=== PATIENT | female | born 1960 | race Caucasian/White ===

== ENCOUNTER 2020-11-09 09:18 | Outpatient (REF) | payer OTHER, SELFPAY ==
--- NOTE | ~2020-11-09 | MM_ITS ---
EXAMINATION: MM SCREENING DIGITAL BREAST TOMOSYNTHESIS, BILATERAL CLINICAL INFORMATION: Screening. Asymptomatic. The lifetime risk of breast cancer based on the Tyrer-Cuzick Model is 5.2%. COMPARISON: Mammography: November 04, 2019 and studies dating back to March 10, 2011 TECHNIQUE: Digital breast tomosynthesis is performed in both the craniocaudal and mediolateral oblique views along with computer-aided detection (CAD). Synthesized 2D images are generated from the tomosynthesis. FINDINGS: The breasts are almost entirely fatty (ACR BI-RADS breast composition Category a). There are no significant masses, abnormal calcifications, or other abnormalities. MM/MM tomosynthesis screening BI IMPRESSION: There are no significant changes from prior study. ASSESSMENT: BI-RADS 1: Negative RECOMMENDATION: Routine annual mammography screening. This patient's information was entered into a reminder system with a target due date for their next mammogram.
== END 2020-11-09 09:19 | disposition home or self-care (01) ==
LOC: HO.MAMMO 09:18
PROVIDERS: PCP Family Medicine
DX: Z12.31 Encounter for screening mammogram for malignant neoplasm of breast (principal)
CPT/HCPCS: 77063; 77067

== ENCOUNTER 2021-11-10 15:37 | Outpatient (REF) | payer OTHER, SELFPAY ==
--- NOTE | ~2021-11-10 | MM_ITS ---
EXAMINATION: MM SCREENING DIGITAL BREAST TOMOSYNTHESIS, BILATERAL CLINICAL INFORMATION: Screening. Asymptomatic. The lifetime risk of breast cancer based on the Tyrer-Cuzick Model is 4%. COMPARISON: Mammography: 11/09/2020, 11/04/2019, 09/19/2016 TECHNIQUE: Digital breast tomosynthesis is performed in both the craniocaudal and mediolateral oblique views along with computer-aided detection (CAD). Synthesized 2D images are generated from the tomosynthesis. FINDINGS: The breasts are almost entirely fatty (ACR BI-RADS breast composition Category a). There are no significant masses, abnormal calcifications, or other abnormalities. Background stromal markings are stable. Low right axillary tail node is similar to prior exam 2019. The skin contours are smooth. No significant changes. MM/MM tomosynthesis screening BI IMPRESSION: No mammographic evidence of malignancy. ASSESSMENT: BI-RADS 1: Negative RECOMMENDATION: Routine annual mammography screening. This patient's information was entered into a reminder system with a target due date for their next mammogram.
== END 2021-11-10 15:38 | disposition home or self-care (01) ==
LOC: HO.MAMMO 15:37
PROVIDERS: PCP Family Medicine; Visit Provider Nurse Practitioner Family
DX: Z12.31 Encounter for screening mammogram for malignant neoplasm of breast (principal)
CPT/HCPCS: 77063; 77067

== ENCOUNTER 2022-11-14 15:43 | Outpatient (REF) | payer OTHER, SELFPAY ==
--- NOTE | ~2022-11-14 | MM_ITS ---
EXAMINATION: MM SCREENING DIGITAL BREAST TOMOSYNTHESIS, BILATERAL CLINICAL INFORMATION: Screening. Asymptomatic. The lifetime risk of breast cancer based on the Tyrer-Cuzick Model is 4.2%. COMPARISON: Mammography: This study is compared with prior exams dating back to 2017. TECHNIQUE: Digital breast tomosynthesis is performed in both the craniocaudal and mediolateral oblique views along with computer-aided detection (CAD). Synthesized 2D images are generated from the tomosynthesis. FINDINGS: There are scattered areas of fibroglandular density (ACR BI-RADS breast composition Category b). There are no significant masses, abnormal calcifications, or other abnormalities. MM/MM tomosynthesis screening BI IMPRESSION: No mammographic evidence of malignancy. ASSESSMENT: BI-RADS BI-RADS 1 - Negative RECOMMENDATION: Routine annual mammography screening. 1 year F/U This examination should not preclude the clinical evaluation of a suspicious palpable abnormality. This patient's information was entered into a reminder system with a target due date for their next mammogram.
== END 2022-11-14 15:44 | disposition home or self-care (01) ==
LOC: HO.MAMMO 15:43
PROVIDERS: PCP Family Medicine; Visit Provider Family Medicine
DX: Z12.31 Encounter for screening mammogram for malignant neoplasm of breast (principal)
CPT/HCPCS: 77063; 77067

== ENCOUNTER → 2022-11-14 16:00 | Outpatient (BNV) | payer OTHER, SELFPAY | PROVIDERS: PCP Family Medicine; Visit Provider Radiology Diagnostic Radiology | DX: Z12.31 Encounter for screening mammogram for malignant neoplasm of breast (principal) | CPT/HCPCS: 77063; 77067 ==

== ENCOUNTER 2023-11-22 07:52 | Outpatient (REF) | payer OTHER, SELFPAY | END 2023-11-22 07:53 | disposition home or self-care (01) | LOC: HO.MAMMO 07:52 | PROVIDERS: PCP Pediatrics; Visit Provider Pediatrics | DX: Z12.31 Encounter for screening mammogram for malignant neoplasm of breast (principal) | CPT/HCPCS: 77063; 77067 ==

== ENCOUNTER → 2023-11-22 08:00 | Outpatient (BNV) | payer OTHER, SELFPAY | PROVIDERS: PCP Pediatrics; Visit Provider Radiology Diagnostic Radiology | DX: Z12.31 Encounter for screening mammogram for malignant neoplasm of breast (principal) | CPT/HCPCS: 77063; 77067 ==

== ENCOUNTER 2024-03-03 12:21 | Outpatient (REF) | payer OTHER, SELFPAY | END 2024-03-03 12:22 | disposition home or self-care (01) | LOC: HO.HOSX 12:21 | PROVIDERS: Visit Provider Orthopaedic Surgery | DX: Z13.89 Encounter for screening for other disorder (principal) ==

== ENCOUNTER 2024-03-04 08:45 | Outpatient (AMB) | payer OTHER, SELFPAY ==
--- NOTE | 2024-03-04 08:52 | A.OFFVIS_ITS ---
Vital Signs 03/04/24 08:56 Height 5 ft 8 in Weight 249 lb BMI 37.9 Intake Visit Reasons: Left shoulder pain and weakness Intake Note: Rita is a 63 year old female who presents with complaints of progressively worsening left shoulder pain and weakness. The patient states that her left shoulder pain began several years ago. She was seen by an orthopedic surgeon in [place] last year. She was told that she has ?2 tears? in her left shoulder. She was due to undergo left shoulder surgery but she opted to undergo total knee replacement surgery 1st. The patient states that several weeks ago she reaggravated her shoulder pain when she ?passed out? while getting out of a car. Since that time she has not been able to lift her left hand above shoulder height. She has done physical therapy exercises which aggravated her pain. She has also tried Tylenol and anti-inflammatory medicines which gave her minimal relief. Allergies No Known Allergies Allergy (Verified 03/04/24 08:55) Medication List - Last Reconciled 03/04/24 by Abel Moore MD No Known Home Meds Physical Exam Vital Signs: BMI result Body Mass Index 37.9 Const Other: Well-nourished well-developed very friendly female awake alert and oriented x3 in no acute distress Extrem Other: Bilateral upper extremity examination shows good capillary refill, no skin lesions noted, normal sensation light touch Left shoulder examination shows decreased active range of motion but almost full passive range of motion when compared to her right shoulder, 3/5 strength with supraspinatus testing, positive impingement signs, no instability Results Reviewed Results Reviewed: X-rays of the patient's left shoulder show severe acromioclavicular joint narrowing, a type 3 acromion, no acute bony abnormalities Assessment & Plan Assessment & Plan (1) Left shoulder pain: Code(s): M25.512 - Pain in left shoulder Category: Medical Plan Ms. Pineda presents with progressively worsening left shoulder pain and weakness most likely due to worsening of her chronic rotator cuff tear. I will send the patient for an MRI of her left shoulder for further evaluation. I will see her back once the MRI is completed to discuss the findings and treatment options. Feel free to call me at any time should questions regarding her orthopedic management arise. I spent 22 minutes in reviewing the patient's records and imaging studies, seeing the patient and documenting in the medical record. Orders: Orders shoulder LT wo con 03/04/24 M25.512 - Pain in left shoulder Coding Level of Care Code New Pt Level 3 (14240) Complex EM visit Add On G2211 Diagnoses Left shoulder pain M25.512
[2024-03-04 08:56] VITALS: BMI 37.9
== END 2024-03-04 09:18 | disposition home or self-care (01) ==
PROVIDERS: PCP Pediatrics; Visit Provider Orthopaedic Surgery
DX: M25.512 Pain in left shoulder (principal)
CPT/HCPCS: 99203; G2211

== ENCOUNTER → 2024-03-04 08:46 | Outpatient (BNV) | payer OTHER, SELFPAY | PROVIDERS: Visit Provider Radiology Diagnostic Radiology | DX: M25.512 Pain in left shoulder (principal) | CPT/HCPCS: 73030 ==

== ENCOUNTER 2024-03-04 12:47 | Outpatient (REF) | payer OTHER, SELFPAY ==
--- NOTE | ~2024-03-04 | XR_ITS ---
EXAMINATION: XR SHOULDER, LEFT CLINICAL INFORMATION: Pain COMPARISON: None available. TECHNIQUE: AP external rotation and scapular Y, views of the left shoulder. FINDINGS: Degenerative changes in the acromioclavicular joint and greater tuberosity of the humerus. No acute cortical disruption or malalignment. No lytic or blastic lesions. No subcutaneous emphysema. Multilevel spondylosis, thoracic spine. XR/XR shoulder LT min 2V IMPRESSION: Osteoarthrosis without acute fracture or dislocation. Electronically signed by: Marcos Xavier MD 03/04/2024 09:01 AM EDT
== END 2024-03-04 12:48 | disposition home or self-care (01) ==
LOC: HO.HOSX 12:47
PROVIDERS: Visit Provider Orthopaedic Surgery
DX: M25.512 Pain in left shoulder (principal)
CPT/HCPCS: 73030; 99202

== ENCOUNTER 2024-03-06 19:20 | Outpatient (REF) | payer OTHER, SELFPAY ==
--- NOTE | ~2024-03-06 | MR_ITS ---
EXAMINATION: MR SHOULDER WITHOUT CONTRAST, LEFT CLINICAL INFORMATION: Pain in left shoulder. COMPARISON: X-rays of the left shoulder February 2024. TECHNIQUE: MRI of the shoulder without contrast was performed on a high-field scanner. FINDINGS: ROTATOR CUFF: Supraspinatus: There is a full-thickness complete insertional tear of the tendon with the associated tendon retraction back to the level of the acromioclavicular joint. This results in a tendon gap measuring 3.5 cm transverse and 3 cm AP. No significant atrophy or fatty infiltration of the muscle. Infraspinatus: There is heterogeneity and longitudinal enlargement of throughout the tendon beginning at the musculotendinous junction extending to the insertion compatible with generalized tendinosis and intrasubstance partial tearing but no measurable defect or tendon retraction. Muscle normal. Teres minor: Normal. Subscapularis: Mild heterogeneity at the insertion compatible with tendinosis and perhaps small areas of interstitial partial tearing. No measurable defect or tendon retraction. Muscle is normal. BICEPS: There is a complete proximal tear of the biceps tendon with retraction of the tendon distal to the bicipital groove. CORACOACROMIAL ARCH: The undersurface of the acromion is curved with no subacromial spur. 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 There is a joint effusion and mild synovitis. This may communicate with the joint through a capsular defect along the inferior aspect of the joint. Bursa: Increased fluid consistent with full-thickness rotator cuff tear communicating with the glenohumeral joint through the tendon defect. LABRUM/CAPSULE: Normal. GLENOHUMERAL JOINT/MARROW: There is mild cartilage heterogeneity along the superior lateral aspect of the humeral head. Glenoid cartilage normal. Overall minimal arthrosis. There is a mild joint effusion and synovitis. MR/MR shoulder LT wo con IMPRESSION: 1. Large full-thickness insertional tear of the supraspinatus tendon. 2. Tendinosis and intrasubstance partial tearing of the infraspinatus tendon. 3. Mild abnormality of the subscapularis compatible with tendinosis and perhaps small areas of interstitial partial tearing but no measurable defect. 4. Complete proximal tear of the biceps tendon. 5. 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 6. Minimal arthrosis of the glenohumeral joint. Electronically signed by: Nate Liu MD 03/07/2024 07:00 AM EDT RP
== END 2024-03-06 19:21 | disposition home or self-care (01) ==
LOC: HO.MRI 19:20
PROVIDERS: Visit Provider Orthopaedic Surgery
DX: M25.512 Pain in left shoulder (principal)
CPT/HCPCS: 73221

== ENCOUNTER 2024-03-24 08:50 | Outpatient (AMB) | payer OTHER, SELFPAY ==
--- NOTE | 2024-03-24 08:52 | A.OFFVIS_ITS ---
Intake Visit Reasons: OV- Left shoulder MRI review Intake Note: Rita is a 63 year old female who presents with complaints of progressively worsening left shoulder pain and weakness. The patient states that her left shoulder pain began several years ago. She was seen by an orthopedic surgeon in [place] last year. She was told that she has ?2 tears? in her left shoulder. She was due to undergo left shoulder surgery but she opted to undergo total knee replacement surgery 1st. The patient states that several weeks ago she reaggravated her shoulder pain when she ?passed out? while getting out of a car. Since that time she has not been able to lift her left hand above shoulder height. She has done physical therapy exercises which aggravated her pain. She has also tried Tylenol and anti-inflammatory medicines which gave her minimal relief. Allergies No Known Allergies Allergy (Verified 03/24/24 08:54) Medication List - Last Reconciled 03/26/24 by Abel Moore MD No Known Home Meds Physical Exam Const Other: Well-nourished well-developed very friendly female awake alert and oriented x3 in no acute distress Extrem Other: Left shoulder examination shows decreased range of motion when compared to her right shoulder, 3/5 strength with supraspinatus testing, positive impingement sign Results Reviewed Results Reviewed: MRI of the patient's left shoulder shows a large rotator cuff tear with retraction almost to the glenoid lip, no acute bony abnormalities Assessment & Plan Assessment & Plan (1) Left shoulder pain: Code(s): M25.512 - Pain in left shoulder Category: Medical Plan Ms. Pineda presents with progressively worsening left shoulder pain and weakness due to a large rotator cuff tear. I had a lengthy discussion with the patient regarding the treatment options. I am not sure at this point if the patient's rotator cuff tear is reparable. She may be a candidate for a repair with a surgical patch. The patient might need reverse total shoulder replacement surgery. Thus, I will have her evaluated by my partner, Dr. Hardy. She will continue with the [id number] exercises in the meantime. I spent 22 minutes in reviewing the patient's records and imaging studies, seeing the patient and documenting in the medical record. Coding Level of Care Code Est Pt Level 3 (71498) Complex EM visit Add On G2211 Diagnoses Left shoulder pain M25.512
== END 2024-03-24 09:16 | disposition home or self-care (01) ==
PROVIDERS: Visit Provider Orthopaedic Surgery
DX: M25.512 Pain in left shoulder (principal)
CPT/HCPCS: 99213; G2211

== ENCOUNTER → 2024-03-24 08:50 | Outpatient (BNVA) | payer OTHER, SELFPAY | PROVIDERS: Visit Provider Orthopaedic Surgery | DX: M75.102 Unspecified rotator cuff tear or rupture of left shoulder, not specified as traumatic (principal) | CPT/HCPCS: 99212 ==

== ENCOUNTER 2024-04-06 10:12 | Outpatient (AMB) | payer OTHER, SELFPAY ==
[2024-04-06 10:16] VITALS: BMI 37.9
--- NOTE | 2024-04-06 10:16 | MHC.OFFVIS ---
Vital Signs 04/06/24 10:16 Height 5 ft 8 in Weight 249 lb BMI 37.9 Intake Visit Reasons: OV-left shoulder pain-discuss surgery Intake Note: Rita is a 63 year old right hand dominant female who presents today for a follow up of her left shoulder. She was last seen with Dr. Moore who referred her to discuss possible Total Shoulder Replacement. Patient explains that she was previously supposed to have a shoulder replacement but opted to have her knee operated on prior to the shoulder. Allergies No Known Allergies Allergy (Verified 04/06/24 10:17) HPI HPI OV-left shoulder pain-discuss surgery: Details: Rita is a 63 year old -- hand dominant female who presents today for a follow up of her left shoulder. She was last seen with Dr. Moore who referred her to discuss possible Total Shoulder Replacement. Patient explains that she was previously supposed to have a shoulder replacement but opted to have her knee operated on prior to the shoulder. She describes difficulty with abduction that has occurred in the past and been present for a few years. Last January however she fell and feels like she re-injured her shoulder. She subsequently got an MRI which showed a full-thickness rotator cuff tear without atrophy. 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[employer] Physical Exam Vital Signs: BMI result Body Mass Index 37.9 Const General: cooperative, healthy appearing, no acute distress and well groomed Orientation/consciousness: oriented to person and oriented to place HEENT Head: Yes normal to inspection, Yes normocephalic and Yes atraumatic Eyes General: appearance normal, both eyes and all related structures Alignment and Position: alignment normal Conjunctivae: conjunctivae normal EOM: EOMs intact bilaterally Neck Neck: Yes normal visual inspection and Yes trachea midline Resp Other: No rerpiratory distress Effort & Inspection: normal respiratory effort and able to speak in complete sentences Cardio Other: Palpable radial pulse with no appreciable rythmic abnormalities GI Other: No abdominal distension Back/Spine/Pelvis Cervical Spine: normal cervical lordosis and cervical ROM normal Skin General skin exam: no rashes or lesions noted Neuro General: oriented to person, oriented to place and gait normal Extrem Other: Shoulder: Positive drop-arm and active abduction to 60 degrees with scapular recruitment. Passive external rotation to 45 degrees. Results Reviewed Results Reviewed: I personally reviewed the MR images. IMPRESSION: 1. Large full-thickness insertional tear of the supraspinatus tendon with the associated tendon retraction back to the level of the acromioclavicular joint. This results in a tendon gap measuring 3.5 cm transverse and 3 cm AP. No significant atrophy or fatty infiltration 2. Tendinosis and intrasubstance partial tearing of the infraspinatus tendon. 3. Mild abnormality of the subscapularis compatible with tendinosis and perhaps small areas of interstitial partial tearing but no measurable defect. 4. Complete proximal tear of the biceps tendon. 5. 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 6. Minimal arthrosis of the glenohumeral joint. Assessment & Plan Assessment & Plan (1) Rotator cuff tear, left: Code(s): M75.102 - Unspecified rotator cuff tear or rupture of left shoulder, not specified as traumatic Category: Medical Plan: This is an active and healthy 63-year-old woman with a left full-thickness rotator cuff tear. There is no atrophy but moderate retraction. I recommend arthroscopic rotator cuff repair. I reviewed with her the possibility that it is unrepairable and that this would result in potential need for arthroplasty in the future. At this time however I think it is worth trying to fix. I discussed the risks, benefits and alternatives including but not limited to the risk of pain, infection, stiffness, need for further surgery as well as potential medical complications such as blood clots, pulmonary embolism and cardiac complications. She expressed understanding and we will proceed forward accordingly. Coding Level of Care Code Est Pt Level 4 (22533) Diagnoses Rotator cuff tear, left M75.102
== END 2024-04-06 11:15 | disposition home or self-care (01) ==
PROVIDERS: Visit Provider Orthopaedic Surgery
DX: M75.102 Unspecified rotator cuff tear or rupture of left shoulder, not specified as traumatic (principal)
CPT/HCPCS: 99214

== ENCOUNTER → 2024-04-06 10:12 | Outpatient (BNVA) | payer OTHER, SELFPAY | PROVIDERS: Visit Provider Orthopaedic Surgery | DX: M75.102 Unspecified rotator cuff tear or rupture of left shoulder, not specified as traumatic (principal) | CPT/HCPCS: 99212 ==

== ENCOUNTER 2024-04-22 08:22 | Day surgery (SDC) | payer OTHER, SELFPAY ==
[2024-04-14 12:31] VITALS: BMI 37.9
--- NOTE | 2024-04-20 14:13 | HO.ANESPROP2 ---
Documented by User: Ligia Gandhi NP 04/20/24 14:14 HPI - Anesthesia Eval Consult details Narrative: 63yo F for Left Arthroscopic Rotator Cuff Repair Medically optimzied per [facility] preop clinic PONV PMFSH Active Problems Active Problems: All Active Problems Rotator cuff tear, left (Acute) Rotator cuff tear, right (Acute) Left shoulder pain (Acute) Right shoulder pain (Acute) Past Medical History Medical History Left shoulder pain Osteoarthritis HTN (hypertension) PONV (postoperative nausea and vomiting) Surgical History Surgical History History of Hx of tubal ligation (~1981) History of loop electrosurgical excision procedure (LEEP) (08/01/23) Hx of colonoscopy S/P right knee arthroscopy History of cholecystectomy (~1982) Hx of laparoscopic gastric banding (2006) History of left knee replacement (01/15/23) History of repair of right rotator cuff (~2021) History of Problems with Anesthesia: Yes (PONV - good effect with scop patch) Social History Social History Are you a primary critical care cns to a significant other at home: Yes (Brother-other family members assist) Do you presently have visiting nurse or other home services: No Patient Tobacco Use Status: Never used Tobacco Current occupational status: employed 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 Meds Allergies Allergy/AdvReac Type Severity Reaction Status Date / Time No Known Allergies Allergy Verified 04/22/24 08:59 Home Medications ?Medication ?Instructions ?Recorded ?Confirmed ?Last Taken ?Type metoprolol succinate 50 mg 50 mg PO BEDTIME 04/06/24 04/22/24 Unknown History tablet,extended release 24 hr calcium carbonate (Calcium 600) 600 mg PO DAILY 04/14/24 04/22/24 04/12/24 History multivitamin 1 tab PO DAILY 04/14/24 04/22/24 04/12/24 History Exam Height,Weight and Vital Signs: Height 5 ft 8 in Weight 112.945 kg Pertinent Lab Results Pertinent Lab Results: CMP 12/2023 from [facility] Assessment and Plan Assessment Anesthesia Assessment: Chart Reviewed Final Anesthetic Review History of Problems with Anesthesia: Yes (PONV - good effect with scop patch) Documented by User: Lizzie Clayton MD 04/22/24 16:05 [facility] Past Medical History Medical History Left shoulder pain Osteoarthritis HTN (hypertension) PONV (postoperative nausea and vomiting) Family History Family history of problems with anesthesia: No Surgical History Surgical History History of Hx of tubal ligation (~1981) History of loop electrosurgical excision procedure (LEEP) (08/01/23) Hx of colonoscopy S/P right knee arthroscopy History of cholecystectomy (~1982) Hx of laparoscopic gastric banding (2006) History of left knee replacement (01/15/23) History of repair of right rotator cuff (~2021) History of Problems with Anesthesia: No (PONV - good effect with scop patch) Social History Social History Are you a primary critical care cns to a significant other at home: Yes (Brother-other family members assist) Do you presently have visiting nurse or other home services: No Patient Tobacco Use Status: Never used Tobacco Current occupational status: employed 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[employer] Meds Allergies Allergy/AdvReac Type Severity Reaction Status Date / Time No Known Allergies Allergy Verified 04/22/24 08:59 Home Medications ?Medication ?Instructions ?Recorded ?Confirmed ?Last Taken ?Type metoprolol succinate 50 mg 50 mg PO BEDTIME 04/06/24 04/22/24 Unknown History tablet,extended release 24 hr calcium carbonate (Calcium 600) 600 mg PO DAILY 04/14/24 04/22/24 04/12/24 History multivitamin 1 tab PO DAILY 04/14/24 04/22/24 04/12/24 History Exam Airway Mallampati Class: II TM Dist: >3cm Neck ROM: Full Heart: rrr Lungs: cta Assessment and Plan Assessment Anesthesia Assessment: Anesthesia Plan Discussed Final Anesthetic Review Family History of Problems with Anesthesia: No History of Problems with Anesthesia: No (PONV - good effect with scop patch) NPO: Yes ASA Class: III Final Preanesthetic Review: No Changes in Pt Med Stat, Meds/Allgs Chart Reviewed, Consent Obtained/Reviewed and Anes Risks/Benef Reviewed Patient Risk: Intermediate Procedure Risk: Intermediate Anesthetic Plan Anesthetic Plan: GA Disposition: Standard PACU
[2024-04-22 09:03] VITALS: BP 138/58; PULSE 59; RESP 15; TEMP 37.1; O2SAT 97
[2024-04-22] MEDS: Scopolamine 1.5 MG PATCH.TD.3 TRANSDERMA (09:13)
[2024-04-22] MEDS: Lactated Ringers 1,000 ML 100 ML IVCONT (09:21)
--- NOTE | 2024-04-22 11:30 | MHC.SHP ---
Pre-Procedural Eval Section A - 24 Hr Update-Section A only Date of Service: 04/22/24 The patient is an INPATIENT: No Changes since office visit: No Cold of Flu in the past 2 weeks, No New Medical Problems, No Changes in Medication and No Patient answered all questions The patient has been examined within 24 hours of the surgical procedure. The History & Physical has been completed within 30 days and I have reviewed it.: Yes Section B - Complete if H&P > 30 days Chief Complaint: Unspecified rotator cuff tear or rupture of left Allergies: Allergies Allergy/AdvReac Type Severity Reaction Status Date / Time No Known Allergies Allergy Verified 04/22/24 08:59 Plan I have reviewed the history and physical and performed a pertinent physical examination on my patient. No changes have occurred unless specified. Time Spent With Patient Time: Total time managing care of this patient today ____ minutes.
--- NOTE | 2024-04-22 14:04 | P.BOP_ITS ---
Brief Operative Note Date of Service: 04/22/24 Pre-op diagnosis: Left rotator cuff tear Post-op diagnosis: same Procedure: Left RTC repair Implants: Foley and Nephew 2 medial 4.75 double loaded and 2 5.5 lateral Medium Regeneten Collagen bioinductive implant Surgeon: Arron Hardy MD Was an Senior Marketing Specialist used for this Procedure?: Yes Senior Marketing Specialist: Consuelo Manzo Estimated blood loss (mL): 25 IV fluids (mL): 1,200 Pathology: none sent Condition: stable Disposition: PACU
[2024-04-22 14:19] VITALS: BP 129/73; PULSE 98; RESP 18; TEMP 36.1; O2SAT 92
[2024-04-22 14:34] VITALS: BP 122/74; PULSE 105; RESP 17; TEMP 36.4; O2SAT 94
[2024-04-22 14:49] VITALS: BP 131/69; PULSE 97; RESP 17; O2SAT 94
--- OUTSIDE RECORDS SUMMARY | 2024-04-22 23:02 | XMS_ITS | Continuity of Care Document ---
Author Organization [facility] Address [address] [place] [address]- Care Team Providers Care Library Specialist Name Role Phone Rudolph TRAVIS, Chandni Gonsalez Primary Care Physician Encounter [facility] [place] Date(s): 04/08/24 - 04/15/24 [facility] [address] [place], [place] [address] Attending Physician: Otilio Villanueva MD Referring Physician: Arron Hardy MD Encounter Type: Office Visit Allergies, Adverse Reactions, Alerts No Known Allergies Immunizations Given and Recorded Vaccine Date Status Refusal Reason SARS-CoV-2 (COVID-19) mRNA-1273 vaccine 07/05/20 R ecorded SARS-CoV-2 (COVID-19) mRNA-1273 vaccine 06/07/20 R ecorded Influenza Virus Vaccine (oldterm) 1 03/07/20 Recor ded influenza virus vaccine, inactivated 02/01/16 Julio C rded 1Result Comment: [facility] [employer] . [place], [place] Medications calcium-vitamin D 250 mg-200 intl units oral tablet 2 gummies, By Mouth, Daily before dinner, 0 Refills, Maintenance, 06/17/23 11:22:00 AM EST, Partial fill upon patient request if the prescription is for a schedule II opioid drug. Start Date: 06/17/23 Status: Ordered Repeat number: 1 Hair, Skin And Nails Plus Biotin 2 gummies, By Mouth, Daily before dinner, 0 Refills, Maintenance, 06/17/23 11:22:00 AM EST, Partial fill upon patient request if the prescription is for a schedule II opioid drug. 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 Full thickness rotator cuff tear Confirmed 12/21/22 Active History of bariatric surgical procedure Confirmed 01/04/23 Active History of gastroesophageal reflux disease Confirmed 01/04/23 Active History of left total knee replacement Confirmed 01/28/23 Active Hypertension Confirmed Active OA (osteoarthritis) of knee Confirmed Active Postoperative nausea and vomiting Confirmed 01/04/23 Active Prediabetes Confirmed Active Rupture of tendon of biceps Confirmed 12/21/22 Active Severe obesity (BMI 35.0-39.9) with comorbidity Confirmed Active Vital Signs Most recent to oldest [Reference Range]: 1 Height 172.8 cm (04/08/24 9:17 AM) Weight 113 kg (04/08/24 9:17 AM) Oxygen Saturation [94-100 %] 100 % (04/08/24 9:17 AM) Pulse Rate [55-90 bpm] 65 bpm (04/08/24 9:17 AM) Body Mass Index [18.5-24.99 kg/m2] 37.84 kg/m2 *>HHI* (04/08/24 9:17 AM) Blood Pressure [90-138/55-84 mm Hg] 124/ 68mm Hg (04/08/24 9:17 AM) Respiratory Rate [16-30 br/min] 14 br/mi n *L* (04/08/24 9:17 AM) Mode of Delivery (Oxygen) Room air (04/08/24 9:17 AM) Blood pressure sites Arm, right (04/08/24 9:17 AM) Weight Obtained Via Standing scale (04/08/24 9:17 AM) Social History Social History Type Response Smoking Status Never (less than 100 in lifetime) entered on: 07/07/20 Sex Sex Representation Female (finding) Patient Care team information Care Team Personnel Name: Chandni Galdamez MD Position: [facility] Physician - Primary Care Member Role: PCP Address: [address] [place] [address] Family Medicine - [address] Telecom: Name: Braxton TRAVIS, Angelica Taylor Position: [facility] MINE DEVELOPMENT ENGINEER MD Member Role: [employer]etime MINE DEVELOPMENT ENGINEER Physician Address: [address] [place] [address] Women's Health Lead [employer]ricator - [place], [place] [address] Telecom: Care Team Related Persons Name: DEVORA GUO Name: LACEY GUO Insurance Providers Guarantor name: MARCELINA Health Plan Information #: 1 Payer: [facility] Direct Non Ribeiro Member Number: [id number] Policy Number: NA Group Number: [id number] Health Plan Information #: 2 Payer: [facility] DIRECT Member Number: [id number] Policy Number: NA Group Number: [id number]
--- OUTSIDE RECORDS SUMMARY | 2024-04-22 23:02 | XMS_ITS | Continuity of Care Document ---
Author Organization [facility] Address [address] [place] [address]- Care Team Providers Care Mission Coordinator Name Role Phone Rudolph TRAVIS, Chandni Gonsalez Primary Care Physician Encounter [facility] [place] Date(s): 02/28/24 - 03/29/24 [facility] [address] [place] [address]- Encounter Type: Triage Allergies, Adverse Reactions, Alerts No Known Allergies Immunizations Given and Recorded Vaccine Date Status Refusal Reason SARS-CoV-2 (COVID-19) mRNA-1273 vaccine 07/05/20 R ecorded SARS-CoV-2 (COVID-19) mRNA-1273 vaccine 06/07/20 R ecorded Influenza Virus Vaccine (oldterm) 1 03/07/20 Recor ded influenza virus vaccine, inactivated 02/01/16 Julio C [facility]ded [facility] [place] [place] Medications Biotin 2 gummies, By Mouth, Daily at bedtime, Oral, 0 Refill(s), Chew by mouth., 0 Refills, 06/17/23 12:14:00 PM EST, Partial fill upon patient request if the prescription is for a schedule II opioid drug. Start Date: 06/17/23 Status: Ordered Repeat number: 1 calcium-vitamin D 250 mg-200 intl units oral [...] Replace Required Details, Route to Pharmacy Electronically, [id number], 172.8, cm, 01/06/24 9:03:00 EDT, Height, 109.9, kg, 09/02/23 15:43:00 EDT, Dry Weight Start Date: 02/28/24 Status: Ordered Quantity: 90.0 Unit: tablet Repeat number: 1 Metoprolol Succinate ER 50 mg oral tablet, extended release 1 tablet, By Mouth, Daily, # 90 tablet, 1 Refills, Maintenance, 04/29/23 9:23:00 AM EST, [facility]/pharmacy #[id number], 174, cm, 04/29/23 8:49:00 EST, Height Start Date: 04/29/23 Status: Ordered Quantity: 90.0 Unit: tablet Repeat number: 2 Tylenol Caplet Extra Strength = 1,000 mg, By Mouth, Every 6 hours, PRN Pain , Moderate, 0 Refills, Maintenance, 07/30/23 4:06:00 PM EDT, Partial fill upon patient request if the prescription is for a schedule II opioid drug. Start Date: 07/30/23 Status: Ordered Repeat number: 1 Problem List Condition Confirmation [...] obesity (BMI 35.0-39.9) with comorbidity Confirmed Active Social History Social History Type Response Smoking Status Never (less than 100 in lifetime) entered on: 07/07/20 Sex Sex Representation Female (finding) Patient Care team information Care Team Personnel Name: Chandni Galdamez MD Position: [facility] Physician - Primary Care Member Role: PCP Address: [address] [place] [address] Family Medicine - [place], [place] [id number] Telecom: Name: Braxton TRAVIS, Angelica Taylor Position: [facility] SLEEVER MD Member Role: Lifetime SLEEVER Physician Address: [address] [place] [address] Women's Health Methods Study Analyst - [place], [place] [address] Telecom: Care Team Related Persons Name: DEVORA GUO Name: LACEY GUO Insurance Providers Guarantor name: MARCELINA Health Plan Information #: 1 Payer: [facility] Direct Non [employer] Member Number: NA Policy Number: NA Group Number: NA Health Plan Information #: 2 Payer: [facility] DIRECT Member Number: NA Policy Number: NA Group Number: NA
--- OUTSIDE RECORDS SUMMARY | 2024-04-22 23:02 | XMS_ITS | Data Portability ---
Author Organization [place] [facility] [place] [place] Address [address] [place] [address] Assessment Encounter Date Assessment Date Assessment LastModified by Organization Details LastModified Time 01/21/2023 01/21/2023 62-year-old fema le with what sounds like an acute injury to her left shoulder. She has a full-thickness retracted supraspinatus tear to the mid humeral line with some tendon degeneration. She has a partial subscapularis tear. She has a complete rupture of the long head of the biceps. She has some glenohumeral degenerative changes. The natural history of rotator cuff tears was reviewed. Treatment options discussed. We discussed that tears of the rotator cuff do not heal and may progress over time. With that being said, not all rotator cuff tears are symptomatic. We talked at length about treatment options including observation and activity modification, home exercise program/physical therapy, injection therapy, and surgical intervention with a arthroscopic versus open rotator cuff repair. We discussed the nature of the surgery as well as the anticipated recovery time. We discussed expectations regarding surgery, understanding that the primary goal is for improvement in pain and secondarily to maintain strength and range of motion. They understand that not all rotator cuff tears heal following surgery. We discussed that not all tears are repairable. We discussed that atrophic changes are generally not reversible. We discussed that some degree of weakness, stiffness, and/or pain may be present despite surgery. She is a candidate to consider a left shoulder arthroscopy, rotator cuff repair, subacromial decompression/acro mioplasty, intra-articular debridement/chondr oplasty. At this point I would recommend an attempt at repair rather than consideration of a reverse shoulder replacement. She understands this might be a possibility down the road if her tear is not repairable, does not heal, or if she develops progressive degenerative changes in the joint. I went over the nature of the arthroscopy with her as well as the anticipated recovery time. As she is just now recovering from her left knee replacement she needs to give this a few weeks and be cleared by Dr. Crocker to undergo surgery. I will put her in touch with the surgical lead so we can start thinking about things. In the interim she will work on a home range of motion program and gentle strengthening. Greater than 30 minutes was spent with the encounter today, including face to face time with the patient, documentation, review of records/imaging if applicable, and coordination of care. PRIOR BK: This is a very pleasant 62-year-old female who returns after her MRI of her left shoulder with findings consistent with massive rotator cuff tear. Along with long head biceps tear. I had discussion with the patient regarding management. Which included ongoing physical therapy plus or minus cortisone injection. The patient is aware however if we perform a cortisone injection this may further weaken the rotator cuff interval and impact on any possible surgical repair. The patient wishes to be seen by Dr. Casillas for surgical consultation. The patient is aware however that she may require reverse shoulder replacement at some point. She wishes to proceed forward with the evaluation visit. In the meantime I encouraged her to continue stretching exercise regimens including rotator cuff protective measures. She can take xzdw-frx-jnemmze pain medication for symptomatic relief. She agrees with the above-noted plan. Assessment & Plan: Date of visit 12/06/2022 This is a very pleasant 62-year-old female with sudden onset of left shoulder pain and weakness approximately 1 to 2 weeks ago after lifting a heavy box. Clinically she presents as a massive rotator cuff tear. I will send her for an MRI for further work-up. Depending upon the findings I may have her see Dr. Casillas for surgical consultation. We did review stretching exercises modalities including rotator cuff protective measures. She will follow-up shortly after her MRI. She can take wufz-tbw-hyiiiho pain medication and topical treatments for symptomatic relief. Should she have worsening symptoms or concerns she should contact my office immediately. The patient agrees with the above-noted plan. [email or web address] Not available 01/22/2023 08:36:52 01/28/2023 01/28/2023 HPI : Patient is doing well 2 weeks status post left TKA. They deny fever, chest pain and shortness of breath. They are compliant with anticoagulation protocol. She is using only Tylenol and methocarbamol for pain control. She is compliant with her aspirin for DVT prophylaxis. She is doing a lot of stretching exercises on her own and is using the force carlos. She has plans to get started on formal PT soon. Physical Exam : Patient is well nourished, well- developed, in no acute distress, with appropriate mood and affect. The patient demonstrates good knee motion and strength. The incision is clean and dry with no sign of infection. Negative calf tenderness and Jh's sign. Range of motion is from 0-100 degrees. Assessment/Plan : The patient is doing well 2 weeks from total knee arthroplasty. Continue 28 day course of anticoagulation therapy. The patient will do physical therapy and return for follow-up in 1 month for re-evaluation; sooner with any problems. Not available 01/28/2023 11:31:26 03/01/2023 03/01/2023 HPI : Patient is here for a 6 week follow-up from a left TKA. She is recovering very well. She is walking without an assistive device. Her pain is improving. She is working with physical therapy. Physical Exam : Patient is well nourished, well- developed, in no acute distress, with appropriate mood and affect. The patient is AAOx3. The patient demonstrates good knee motion and strength. The incision is well healed. Range of motion 0 to 125 degrees today. Assessment/Plan : The patient is functioning well 6 weeks from total knee arthroplasty. Continue physical therapy as needed. Return for follow-up in 2 months with x-rays at that time. Not available 03/01/2023 13:51:47 04/26/2023 04/26/2023 HPI : Patient is here for 3 month(s) follow-up for a LEFT total knee replacement.? ? she is recovering well. She has minimal to no pain. She has good function. She is walking well. She is very happy with her progress. She is still working strengthening. Overall, patient reports good pain relief in the knee and satisfactory presybeterian of function in terms of activities of daily living. Physical Exam : Patient is well nourished, well-developed, in no acute distress, with appropriate mood and affect. The patient is oriented to time, place, and person. Respirations are even and unlabored. There is no inguinal adenopathy. Examination of the contralateral knee shows normal range of motion, strength, no tenderness, and intact skin. The affected limb is well-perfused, with well healed skin incision. The patient demonstrates good knee motion, stability, and strength. The knee moves from 0-130 degrees. The alignment of the knee is neutral. Muscle strength is normal. Pedal pulses are palpable. Hip examination, including flexion and internal rotation, was negative in that groin pain was not produced. Assessment/Plan : This patient is functioning well 3 month(s) after LEFT total knee arthroplasty. Continue knee conditioning exercises. Tgjd-lkn-efwuvtj medications as needed. Ultimate failure may occur due to mechanical wear, loosening or breakage. Follow-up is recommended to assess for the possibility of failure. Plan for follow-up at 1 year from surgery with repeat x-rays of the left knee at that time. Not available 04/26/2023 09:55:44 01/30/2024 01/30/2024 HPI : Patient is here for 1 year follow-up for a left total knee replacement.? ? Patient reports good pain relief in the knee and satisfactory presybeterian of function in terms of activities of daily living. Current condition is improved relative to their pre operative condition. They have not encountered any major problems since their last office visit. She reports that it is great. She states that her left knee is pain-free and high functioning. She does report that on Saturday of this week she fell getting out of the car landing down onto the grass causing a small bruise at the anterolateral aspect of the left knee. Knee function has continued to be perfect. She is very pleased with the long-term results of her knee replacement surgery and states that she feels much better than she did before the operation. Physical Exam : Patient is well nourished, well-developed, in no acute distress, with appropriate mood and affect. The patient is oriented to time, place, and person. Respirations are even and unlabored. The affected limb is well-perfused, with well healed skin incision. The patient demonstrates good knee motion, stability, and strength. The knee moves from 0-110 degrees. Muscle strength is normal. Pedal pulses are palpable. X-Ray: 5 view x-ray study of left knee(s) obtained during today's office encounter does not show any signs of implant related issues including loosening, malposition, instability, periprosthetic fracture, periosteal reaction or infection. Assessment/Plan : This patient is functioning well after knee arthroplasty. Continue knee conditioning exercises. Ekpx-iag-ujxbhvp medications as needed. The patient understands that ultimate failure may occur due to mechanical wear, loosening or breakage. Follow-up at approximately five year post-op is recommended to assess for the possibility of failure. Follow up sooner with any problems. At least 25 minutes were spent reviewing previous charting and radiographs, obtaining history and physical exam, and reviewing treatment plan. This patient was seen and evaluated by Cindi Jane MS, PA-C in indirect conjunction with documenting/superv ising provider Federico Crocker MD. He agrees with history, physical examination, tests/diagnostic imaging, and treatment plan. Not available 01/30/2024 09:32:08 Plan of Treatment Reminders Order Date Submit Date Provider Last Modified By Organization Details Last Modified Time Details Appointments None recorded. Lab None recorded. Referral None recorded. Procedures None recorded. Surgeries shoulder arthroscopy (SURG) 2022 023 MARIA DEL CARMEN Not available 3 08:56:08 Imaging XR, knee, 3 view 2022 023 [facility], [address], [address], [place], [address], 3 11:55:21 XR, knee, 3 view 2023 024 [email or web address] [facility], [address], [address], [place], [address], 4 09:50:31 Medication Orders None recorded. Patient TargetsNo targets recorded. Patient Instructions Encounter Date Encounter Id Patient Instructions Last Modified By Organization Details Last Modified Time 01/28/2023 [id number] physical therapy * - Diagnosis: s/p L TKA Evaluate and treat as indicated to reduce pain and to improve mobility, range of motion, and function. Please teach a home exercise plan and incorporate PT into patient's exercise routine. 2-3 sessions weekly for 6 weeks. [email or web address] Not available 02/04/2023 08:25:56 04/26/2023 [id number] AP, lateral, and patellar radiographs of the left knee taken today demonstrate satisfactory position and alignment of components following left total knee replacement. Not available 04/26/2023 09:55:52 Reason for Referral None Reported. Problems Name Problem SNOMED Code Status Onset Date Resolution Date Notes Provider Name and Address Organization Details Recorded Time Arthritis of knee 545311339 Active 2022 Federico Crocker MD [address], [place], [address], [place] [facility] 3 11:51:10 Pain of left shoulder joint 4989982803627 9109 Active 2022 Tasneemryan JamesPresley null, [place] [facility] 3 15:26:18 Rupture of rotator cuff of left shoulder 1994404032485 9102 Active 2022 CINDI YOUSSEF PA-C [address], [place], [address], [place] [facility] 3 15:43:46 Rupture of tendon of biceps 412805115 Active 2022 CINDI YOUSSEF PA-C [address], [place], [address], [place] [facility] 3 06:53:56 Full thickness rotator cuff tear 506105600 Active 2022 CINDI YOUSSEF PA-C [address], [place], [address], [place] [facility] 3 06:54:15 History of left total knee replacement 9564924647340 105 Active 2022 CINDI JANE PA-C [address], [place], [address], [place] [facility] 3 11:29:51 Osteoarthri tis of left knee joint 7282747695256 09 Active 2022 CINDI YOUSSEF PA-C [address], [place], [address], [place] [facility] 3 08:34:00 Instability of joint of left knee 2423577108836 106 Active 2022 CINDI YOUSSEF PA-C [address] [facility],[address], [place], [address], [place] [facility] 3 08:34:10 Problem Notes None recorded. Procedures Surgical History Date Name Laterality Status Provider Name and Address Organization Details Recorded Time 10/10/2022 Knee Joint/Burs a Asp & Inj completed CINDI YOUSSEF PA-C [address] [facility],[address], [place], [address], [place] [facility] 10/12/2022 08:32:56 Imaging Results None recorded. Procedure Notes None recorded. Medical Equipment None Reported. Allergies No known drug allergies Medications Name Sig Start Date Stop Date Status Note LastModified by Organization Details LastModified Time amoxicillin 500 mg capsule TAKE 4 CAPSULES BY MOUTH 1 HOUR BEFORE APPOINTME NT 01/29 completed Not Available Not Available Not Available metoprolol succinate ER 50 mg tablet,exte nded release 24 hr TAKE 1 TABLET BY MOUTH EVERY DAY active Not Available Not Available No t Available diclofenac ER 100 mg tablet,exte nded release 24 hr TAKE 1 TABLET BY MOUTH TWICE A DAY 01/29 completed Not Available Not Available Not Available meloxicam 15 mg tablet TAKE 1 TABLET BY MOUTH EVERY DAY FOR 15 DAYS active Not Available Not Available No t Available aspirin 81 mg tablet,osmin yed release TAKE 1 TABLET BY MOUTH TWICE A DAY FOR 28 DAYS active Not Available Not Available No t Available ondansetron 8 mg disintegrat ing tablet TAKE 1 TABLET DISSOLVED UNDER THE TONGUE EVERY 8 HOURS NEEDED FOR NAUSEA. 03/01 completed Not Available Not Available Not Available Kenalog 40 mg/mL suspension for injection Take 1 mL by injection route. 04/26 completed Not Available Not Available Not Available lorazepam 0.5 mg tablet TAKE 1 TABLET BY MOUTH EVERYDAY AT BEDTIME 01/29 completed Not Available Not Available Not Available methocarbam ol 750 mg tablet TAKE 1 TABLET BY MOUTH EVERY 6 HOURS NEEDED 04/26 completed Not Available Not Available Not Available pantoprazol e 40 mg tablet,osmin yed release TAKE 1 TABLET BY MOUTH EVERY DAY active Not Available Not Available No t Available scopolamine 1 mg over 3 days transdermal patch PLEASE SEE ATTACHED FOR DETAILED DIRECTION S active Not Available Not Available No t Available Tylenol Extra Strength 500 mg tablet Take 2 tablets every 8 hours by oral route for 28 days. 2022 active Not Available Not Available Not Avai lable oxycodone 5 mg tablet TAKE 1-2 TABLETS BY MOUTH EVERY 4 HOURS NEEDED FOR PAIN 03/01 completed Not Available Not Available Not Available lidocaine (PF) 10 mg/mL (1 %) injection solution Take 2 mL by injection route. 04/26 completed Not Available Not Available Not Available Senexon-S 8.6 mg-50 mg tablet TAKE 1 TABLET BY MOUTH TWICE A DAY 03/01 completed Not Available Not Available Not Available Vitals Date Recorded Body height Provider Name an d Address Organization Details Last Updated DateTime 04/26/2023 177.8 cm Marimar Stanton [place] [facility] 04/26/2023 09:14:13 Date Recorded Body height Body mass index (BMI) Body weight Provider Name and Address Organization Details Last Updated DateTime 01/30/2024 177.8 cm 35.7 kg/m2 923678.5 g Coretta García [place] [facility] 01/30/2024 09:12:51 Date Recorded Body height Provider Name an d Address Organization Details Last Updated DateTime 01/21/2023 177.8 cm Yanique Jackson [place] [facility] 01/21/2023 12:52:51 Date Recorded Body height Body mass index (BMI) Body weight Provider Name and Address Organization Details Last Updated DateTime 01/28/2023 177.8 cm 38.3 kg/m2 120732.16 g Quan Marks [facility] 01/28/2023 11:20:36 Date Recorded Body height Body mass index (BMI) Body weight Provider Name and Address Organization Details Last Updated DateTime 03/01/2023 177.8 cm 38.3 kg/m2 998057.16 g Quan Marks [facility] 03/01/2023 13:30:27 Social History Question Answer Notes LastModified by Organizat ion Details LastModified Time Tobacco Smoking Status Never Smoker Yanique Jackson null, [place] [facility] 10/10/2022 15:16:33 What Is Your Level Of Alcohol Consumption? None [email or web address] Information not available 10/10/2022 Do You Use Any Illicit Or Recreational Drugs? No [email or web address] Information not available 10/10/2022 Do You Or Have You Ever Used Any Other Forms Of Tobacco Or Nicotine? No [email or web address] Information not available 10/10/2022 Sex: Unknown Functional Status None recorded. Mental Status None recorded. Family History Relationship Description Onset Age of this Age Resolved Age Notes LastModified by Organization Details LastModified Time Father Family history of malignant neoplasm [email or web address] Not available 2022 15:16:56 Father Diabetes mellitus [email or web address] Not available 2022 15:17:05 Father History of hypertension [email or web address] Not available 15:17:26 Mother Family history of malignant neoplasm [email or web address] Not available 2022 15:16:56 Mother History of hypertension [email or web address] Not available 15:17:26 Medical History Condition Response Hypertension Y Gynecological HistoryNo gynecological history recorded. Obstetrics History GPAL:G 0 P 0 0 0 0 Past Encounters Encounter ID Performer Location Encounter Start Date Encounter Closed Date Diagnosis/Indication Diagnosis SNOMED-CT Code Diagnosis ICD10 Code [id number] MD CHRISS Altamirano [address] [address] 10/10/2022 14:34:51 10/10/2022 15:56:08 Osteoarthritis of left knee joint 3796840646 61205 M17.12 Instabilit y of joint of left knee 5748712303 773134 M25.362 [id number] MD CHRISS Altamirano [address] [address] 11/30/2022 10:57:24 11/30/2022 12:04:05 Pain of left knee joint 5318906795 95257 M25.562 Osteoarthr itis of left knee joint 1899850225 53078 M17.12 Arthritis of knee 650513 002 M13.869 [id number] MD CHRISS Altamirano [address] [address] [place] [address] 12/06/2022 15:04:33 12/06/2022 15:49:35 Pain of left shoulder joint 0527216257 0152224 M25.512 Rupture of rotator cuff of left shoulder 0618086696 0901341 M75.102 [id number] MD CHRISS Bassett [place] [address] [address] [place] [address] 12/20/2022 14:59:56 12/20/2022 15:29:52 Full thickness rotator cuff tear 300752717 M75.122 Rupture of tendon of biceps 734370667 M66.829 [id number] MD CHRISS Bassett [place] [address] [address] [place] [address] 01/21/2023 12:47:22 01/21/2023 13:08:50 Full thickness rotator cuff tear 990253406 M75.122 Rupture of tendon of biceps 138193251 M66.829 [id number] MD CHRISS Altamirano [place] [address] [address] [place] [address] 01/28/2023 11:01:32 01/28/2023 11:30:49 History of left total knee replacement 2411932357 918391 Z96.652 [id number] MD CHRISS Altamirano [place] [address] [address] [place] [address] 03/01/2023 13:18:20 03/01/2023 13:53:25 History of left total knee replacement 4177944949 535608 Z96.652 Aftercare 949971525 Z47. 1 [id number] MD CHRISS Altamirano [place] [address] [address] [place] [address] 04/26/2023 08:55:11 04/26/2023 10:00:56 History of left total knee replacement 0647727885 287717 Z96.652 Aftercare 828301869 Z47. 1 [id number] MD [facility] [address] [place] [address] 01/30/2024 09:00:44 01/30/2024 09:36:01 History of left total knee replacement 6002672525 826359 Z96.652 Health Concerns Section Related Observation LastModified by Organization Detai ls LastModified Time None Recorded Concern Status LastModified by Organization Details LastModified Time None Recorded Advance Directives Directive None Recorded Payers Encounter Date Sequence Insurance Name Policy Number Policy Rosario Covered Member ID Rosario Member ID Guarantor Name 01/21/2023 1 [employer] - CHOICE (POS II) [id number] Rita Pinead [id number] Rita Pineda 01/28/2023 1 [employer] - CHOICE (POS II) [id number] Rita Pineda [id number] Rita Pineda 03/01/2023 1 [employer] - CHOICE (POS II) [id number] Rita Pineda [id number] Rita Pineda 04/26/2023 1 [employer] - CHOICE (POS II) [id number] Rita Pineda [id number] Rita Pineda 01/30/2024 1 [employer] - [facility] TYPE I (O) [id number] Rita Pineda [id number] Rita Pineda Notes Date Note Type Note Provider Name and Address Organization Details Recorded Time 01/21/2023 text/html Patient returns to the office for an evaluation of her left shoulder. She is right-hand dominant. This started back in November when she was picking up a case of soda and heard a ripping sensation in her shoulder. She has had pain and some difficulty raising the arm since then. She ended up having an MRI after she saw Cindi in our office. She has been working on a home exercise program. She rates her pain as a 3 to a 5 on a 10 point scale. She has some discomfort sleeping on the shoulder at night. She is not sure if she has had any prior injuries or problems with the shoulder, she has a history of a contralateral shoulder rotator cuff surgery. She is recently postop from a total knee replacement with Dr. Crocker. History of high blood pressure and arthritis . Non-smoker. She is a retired [employer]. PRIOR BK:62-year-old female here for follow-up on her MRI results of her left shoulder pain. No interval change since her visit on 12/06/2022 ongoing weakness and discomfort.States however her range of motion has improved somewhat. Owen Casillas MD [address] [place] [address], [place], [address], [place] [facility] 01/22/2023 08:37:07 OBGyn Episode No OBEpisode recorded.
--- OUTSIDE RECORDS SUMMARY | 2024-04-22 23:03 | XMS_ITS | Continuity of Care Document ---
Author Organization [place] [facility] Yoshi Bain AONE [place] Address [address] [facility] [address] [place] [address] Assessment Encounter Date Assessment Date Assessment LastModified by Organization Details LastModified Time 01/30/2024 01/30/2024 HPI : Patient is here for 1 year follow-up for a left total knee replacement.? ? Patient reports good pain relief in the knee and satisfactory mosque of function in terms of activities of [...] after knee arthroplasty. Continue knee conditioning exercises. Hups-awk-rprlegp medications as needed. The patient understands that [...] seen and evaluated by Cindi Jane MS, PITA in indirect conjunction with documenting/super vising provider Federico Crocker MD. He agrees with history, physical examination, tests/diagnostic imaging, and treatment plan. [email or web address] Not available 01/30/2024 09:32:08 Plan of Treatment Reminders Order Date Submit Date Provider Last Modified By Organization Details Last Modified Time Details Appointments None record ed. Lab None record ed. Referral None record ed. Procedures None record ed. Surgeries None record ed. Imaging XR, knee, 3 view 024 01/30/20 24 [email or web address] [facility], [address], [address], [place], [address], 4 09:50:31 Medication Orders None record ed. Patient TargetsNo targets recorded. Patient InstructionsNo instructions recorded. Reason for Referral None Reported. Problems Name Problem SNOMED Code Status Onset Date Resolution Date Notes Provider Name and Address Organization Details Recorded Time Arthritis of knee 307824546 Active 2022 Federico Crocker MD [address], [place], [address], [place] [facility], [facility] 3 11:51:10 Pain of left shoulder joint 0423478405923 9109 Active 2022 Tasneem Presley null, [place] [facility], [facility] 3 15:26:18 Rupture of rotator cuff of left shoulder 0664646436730 9102 Active 2022 CINDI YOUSSEF PA-C [address], [place], [address], [place] [facility], [facility] 3 15:43:46 Rupture of tendon of biceps 437646722 Active 2022 CINDI YOUSSEF PA-C [address], [place], [address], [place] [facility], [facility] 3 06:53:56 Full thickness rotator cuff tear 098456709 Active 2022 CINDI YOUSSEF PA-C [address], [place], [address], [place] [facility], [facility] 3 06:54:15 History of left total knee replacement 0479448162094 105 Active 2022 CINDI JANE PA-C [address], [place], [address], [place] [facility], [facility] 3 11:29:51 Osteoarthri tis of left knee joint 2962161127538 09 Active 2022 CINDI YOUSSEF PA-C [address], [place], [address], [place] [facility], [facility] 3 08:34:00 Instability of joint of left knee 4245385601434 106 Active 2022 CINDI YOUSSEF PA-C [address], [place], [address], [place] [facility], [facility] 3 08:34:10 Problem Notes None recorded. Procedures Surgical History Date Name Laterality Status Provider Name and Address Organization Details Recorded Time 10/10/2022 Knee Joint/Burs a Asp & Inj completed CINDI YOUSSEF PA-C [address], [place], [address], [place] [facility], [facility] 10/12/2022 08:32:56 Imaging Results None recorded. [...] Not Available Vitals Date Recorded Body height Body mass index (BMI) Body weight Provider Name and Address Organization Details Last Updated DateTime 01/30/2024 177.8 cm 35.7 kg/m2 755557.5 g Coretta García [place] [facility] 01/30/2024 09:12:51 Social History Question Answer Notes LastModified by Organizat ion Details LastModified Time Tobacco Smoking Status Never Smoker Yanique porter, [place] [facility], [facility] 10/10/2022 15:16:33 What Is Your Level Of Alcohol Consumption? None Information not available 10/10/2022 Do You Use Any Illicit Or Recreational Drugs? No Information not available 10/10/2022 Do You Or Have You Ever Used Any Other Forms Of Tobacco Or Nicotine? No [email or web address] Information not available 10/10/2022 Sex: Unknown Functional Status None recorded. Mental Status None recorded. Family History Relationship Description Onset Age of this Age Resolved Age Notes LastModified by Organization Details LastModified Time Father Family history of malignant neoplasm [email or web address] Not available 2022 15:16:56 Father Diabetes mellitus [email or web address] Not available 2022 15:17:05 Father History of hypertension [email or web address] Not available 15:17:26 Mother Family history of malignant neoplasm [email or web address] Not available 2022 15:16:56 Mother History of hypertension [email or web address] Not available 15:17:26 Medical History Condition Response Hypertension Y Gynecological HistoryNo gynecological history recorded. Obstetrics History GPAL:G 0 P 0 0 0 0 Past Encounters Encounter ID Performer Location Encounter Start Date Encounter Closed Date Diagnosis/Indication Diagnosis SNOMED-CT Code Diagnosis ICD10 Code [id number] MD CHRISS Altamirano [address] [address] 01/30/2024 09:00:44 01/30/2024 09:36:01 History of left total knee replacement 1030192791 669875 Z96.652 Health Concerns Section Related Observation LastModified by Organization Detai ls LastModified Time None Recorded Concern Status LastModified by Organization Details LastModified Time None Recorded Payers Encounter Date Sequence Insurance Name Policy Number Policy Rosario Covered Member ID Rosario Member ID Guarantor Name 01/30/2024 1 [facility] [employer] PLANS [facility] TYPE I (HMO) [id number] Rita Pineda [id number] 1 Rita Pineda OBGyn Episode No OBEpisode recorded.
--- NOTE | 2024-04-27 08:13 | W.PM.OPN ---
Operative Note Operative Note Date of Service: 04/22/24 Narrative: Date of Service: 04/22/24 Pre-op diagnosis: Left rotator cuff tear Post-op diagnosis: same Procedure: Left RTC repair Implants: Foley and Nephew 2 medial 4.75 double loaded and 2 5.5 lateral Medium Regeneten Collagen bioinductive implant Surgeon: Arron Hardy MD Was an Sba Underwriter used for this Procedure?: Yes Sba Underwriter: Consuelo Manzo Estimated blood loss (mL): 25 IV fluids (mL): 1,200 Pathology: none sent Condition: stable Disposition: PACU Procedure in detail: Patient was brought to the operating room and placed the the beach chair position. All bony prominences were well padded and the limb was prepped and draped in standard sterile fashion. A time out was called to identify proper site, proper procedure and proper surgeon. IV antibiotics per weight were administered. I began by making a posterolateral stab incision with a 15 blade. A blunt trochar was placed into the glenohumeral joint and I insufflated the joint with saline and a 30 degree arthroscope was placed. I established an outside- in anterior portal just distal to the biceps tendon. I then began my inspection of the glenohumeral joint. There was an absent biceps tendon and degenerative labral fraying anteriorly and superiorly. The subscapularis was intact. There were minimal cartilage changes at the inferior glenoid without humeral head changes. There was a full thickness undersurface RTC tear. I debrided the loose cartilage of the glenoid and the degenerative labral tearing. I then removed the trochar and entered the subacromial space. A direct lateral portal was then established and I performed a bursectomy. The cuff was then examined. There was a full thickness tear of the supra and infraspinatus with retraction. The tear was mobile posteriorly but degenerative intra substance fraying anteriorly restricted motion. I placed two medial row double loaded anchors after using a tap just adjacent to the articular cartilage and then brought the suture limbs ( 8) through the medial cuff. I then debrided the bare area down to bleeding bone and, using a cross bridge configuration, brought 4 limbs to each of two lateral 5.0 anchors. This re-approximated the posterior half of the supraspinatus and the infraspinatus anatomy anatomically. Murtaza anterior 50 % of the supraspinatsus was in very poor condition with intra substance tearing and retraction such that reproduction of normal anatomy was not possible. Given this I elected to place a medium regeneten implant over the remaining cuff. This was placed via the lateral portal and held in place with 4 PEEK ratna and 2 PEEK lateral bone ratna. A 5mm sub acromial decompression was performed with a n oval fito. Once I was satisfied with the repair final images were captured and I removed all instrumentation. Portals were closed with nylon. Patient was placed in an abduction sling, extubated and brought to the recovery room in stable condition. There were no known complications.
== END 2024-04-22 15:46 | disposition home or self-care (01) ==
LOC: HO.SSS 08:22
PROVIDERS: Visit Provider Orthopaedic Surgery
PROC: (CPT 29827; principal; 2024-04-22 10:30)
DX: S46.012A Strain of muscle(s) and tendon(s) of the rotator cuff of left shoulder, initial encounter (principal); W19.XXXA Unspecified fall, initial encounter; Y93.9 Activity, unspecified; Y92.9 Unspecified place or not applicable; Y99.9 Unspecified external cause status; M17.10 Unilateral primary osteoarthritis, unspecified knee; I10 Essential (primary) hypertension; R73.03 Prediabetes; E66.01 Morbid (severe) obesity due to excess calories; Z68.37 Body mass index [BMI] 37.0-37.9, adult; Z98.890 Other specified postprocedural states; Z98.84 Bariatric surgery status; Z96.652 Presence of left artificial knee joint
CPT/HCPCS: 29827; 29826; C1713; C1763; J0131; J0171; J0665; J0690; J1100; J1885; J2003; J2250; J2405; J2704; J3010

== ENCOUNTER → 2024-04-22 08:22 | Outpatient (BNV) | payer OTHER, SELFPAY | PROVIDERS: Visit Provider Orthopaedic Surgery | DX: M75.122 Complete rotator cuff tear or rupture of left shoulder, not specified as traumatic (principal) | CPT/HCPCS: 29827 ==

== ENCOUNTER 2024-04-28 10:16 | Outpatient (AMB) | payer OTHER, SELFPAY ==
--- OUTSIDE RECORDS SUMMARY | 2024-04-28 10:18 | XMS_ITS | Data Portability ---
Author Organization [place] [facility] Yoshi Bain AONE [place] Address [address] [place] [address] Assessment Encounter Date Assessment Date Assessment LastModified [...] will put her in touch with the contact lens molder so we can start thinking about things. [...] rotator cuff protective measures. She can take jlfq-xpn-vijgjnb pain medication for symptomatic relief. She agrees [...] shortly after her MRI. She can take kkoq-qwj-klaafxk pain medication and topical treatments for symptomatic [...] pain relief in the knee and satisfactory restorationism of function in terms of activities of [...] total knee arthroplasty. Continue knee conditioning exercises. Ntsm-pcy-jtzdpfe medications as needed. Ultimate failure may occur [...] pain relief in the knee and satisfactory restorationism of function in terms of activities of [...] after knee arthroplasty. Continue knee conditioning exercises. Ydnp-xiz-phzpkwz medications as needed. The patient understands that [...] knee, 3 view 2022 023 [facility], [address], [address], [place], [address], 3 11:55:21 XR, knee, 3 view 2023 024 [email or web address] [facility], [address], [address], [place], [address], 4 09:50:31 Medication Orders None recorded. Patient TargetsNo targets recorded. Patient Instructions Encounter Date Encounter Id Patient Instructions Last Modified By Organization Details Last Modified Time 01/28/2023 [id number] physical therapy * - Diagnosis: s/p L TKA Evaluate and treat as indicated to reduce pain and to improve mobility, range of motion, and function. Please teach a home exercise plan and incorporate PT into patient's exercise routine. 2-3 sessions weekly for 6 weeks. [email or web address] Not available 02/04/2023 08:25:56 04/26/2023 [id number] AP, lateral, and patellar radiographs of the left knee taken today demonstrate satisfactory position and alignment of components following left total knee replacement. Not available 04/26/2023 09:55:52 Reason for Referral None Reported. Problems Name Problem SNOMED Code Status Onset Date Resolution Date Notes Provider Name and Address Organization Details Recorded Time Arthritis of knee 069148035 Active 2022 Federico Crocker MD [address], [place], [address], [place] [facility], [facility] 3 11:51:10 Pain of left shoulder joint 4187417003620 9109 Active 2022 Tasneemryan JamesPresley null, [place] [facility], [facility] 3 15:26:18 Rupture of rotator cuff of left shoulder 7301732207014 9102 Active 2022 CINDI YOUSSEF PA-C [address], [place], [address], [place] [facility], [facility] 3 15:43:46 Rupture of tendon of biceps 716639342 Active 2022 CINDI YOUSSEF PA-C [address], [place], [address], [place] [facility], [facility] 3 06:53:56 Full thickness rotator cuff tear 602673036 Active 2022 CINDI YOUSSEF PA-C [address], [place], [address], [place] [facility], [facility] 3 06:54:15 History of left total knee replacement 4051454642217 105 Active 2022 CINDI JANE PA-C [address], [place], [address], [place] [facility], [facility] 3 11:29:51 Osteoarthri tis of left knee joint 3768085733614 09 Active 2022 CINDI YOUSSEF PA-C [address], [place], [address], [place] [facility], [facility] 3 08:34:00 Instability of joint of left knee 0726562206201 106 Active 2022 CINDI YOUSSEF PA-C [address] [facility],[address], [place], [address], [place] [facility], [facility] 3 08:34:10 Problem Notes None recorded. Procedures Surgical History Date Name Laterality Status Provider Name and Address Organization Details Recorded Time 10/10/2022 Knee Joint/Burs a Asp & Inj completed CINDI YOUSSEF PA-C [address] [facility],[address], [place], [address], [place] [facility], [facility] 10/12/2022 08:32:56 Imaging Results None recorded. [...] Updated DateTime 04/26/2023 177.8 cm Marimar Stanton [place] - [facility] 04/26/2023 09:14:13 Date Recorded Body height Body mass index (BMI) Body weight Provider Name and Address Organization Details Last Updated DateTime 01/30/2024 177.8 cm 35.7 kg/m2 878728.5 g Coretta García [place] - [facility] 01/30/2024 09:12:51 Date Recorded Body height Provider Name an d Address Organization Details Last Updated DateTime 01/21/2023 177.8 cm Yanique Jackson [place] [facility] 01/21/2023 12:52:51 Date Recorded Body height Body mass index (BMI) Body weight Provider Name and Address Organization Details Last Updated DateTime 01/28/2023 177.8 cm 38.3 kg/m2 931723.16 g Quan Marks [facility] [place] 01/28/2023 11:20:36 Date Recorded Body height Body mass index (BMI) Body weight Provider Name and Address Organization Details Last Updated DateTime 03/01/2023 177.8 cm 38.3 kg/m2 430936.16 g Quan Marks [facility] [place] 03/01/2023 13:30:27 Social History Question Answer Notes LastModified by Organizat ion Details LastModified Time Tobacco Smoking Status Never Smoker Yanique Jackson null[place] [facility] 10/10/2022 15:16:33 What Is Your Level Of Alcohol Consumption? None [email or web address] Information not available 10/10/2022 Do You Use Any Illicit Or Recreational Drugs? No [email or web address] Information not available 10/10/2022 Do You Or Have You Ever Used Any Other Forms Of Tobacco Or Nicotine? No [email or web address] Information not available 10/10/2022 Sex: Unknown Functional Status None recorded. Mental Status None recorded. Family History Relationship Description Onset Age of this Age Resolved Age Notes LastModified by Organization Details LastModified Time Father Family history of malignant neoplasm [email or web address] Not available 2022 15:16:56 Father Diabetes mellitus Not available 2022 15:17:05 Father History of hypertension [email or web address] Not available 15:17:26 Mother Family history of malignant neoplasm [email or web address] Not available 2022 15:16:56 Mother History of hypertension [email or web address] Not available 15:17:26 Medical History Condition Response Hypertension Y Gynecological HistoryNo gynecological history recorded. Obstetrics History GPAL:G 0 P 0 0 0 0 Past Encounters Encounter ID Performer Location Encounter Start Date Encounter Closed Date Diagnosis/Indication Diagnosis SNOMED-CT Code Diagnosis ICD10 Code [id number] MD CHRISS Altamirano [address] [address] 10/10/2022 14:34:51 10/10/2022 15:56:08 Osteoarthritis of left knee joint 2525010146 80246 M17.12 Instabilit y of joint of left knee 8630147077 841481 M25.362 [id number] MD CHRISS Altamirano [address] [address] 11/30/2022 10:57:24 11/30/2022 12:04:05 Pain of left knee joint 9036535686 09662 M25.562 Osteoarthr itis of left knee joint 0663483620 56858 M17.12 Arthritis of knee 281903 002 M13.869 [id number] MD CHRISS Altamirano [address] [address] [place] [address] 12/06/2022 15:04:33 12/06/2022 15:49:35 Pain of left shoulder joint 0321173520 1537525 M25.512 Rupture of rotator cuff of left shoulder 1338701078 6729396 M75.102 [id number] MD CHRISS Bassett [place] [address] [address] [place] [address] 12/20/2022 14:59:56 12/20/2022 15:29:52 Full thickness rotator cuff tear 829802323 M75.122 Rupture of tendon of biceps 985036790 M66.829 [id number] MD CHRISS Bassett [place] [address] [address] [place] [address] 01/21/2023 12:47:22 01/21/2023 13:08:50 Full thickness rotator cuff tear 374374671 M75.122 Rupture of tendon of biceps 248016827 M66.829 [id number] MD CHRISS Altamirano [place] [address] [address] [place] [address] 01/28/2023 11:01:32 01/28/2023 11:30:49 History of left total knee replacement 0921562958 222465 Z96.652 [id number] MD CHRISS Altamirano [place] [address] [address] [place] [address] 03/01/2023 13:18:20 03/01/2023 13:53:25 History of left total knee replacement 7200659230 939009 Z96.652 Aftercare 871792354 Z47. 1 [id number] MD CHRISS Altamirano [place] [address] [address] [place] [address] 04/26/2023 08:55:11 04/26/2023 10:00:56 History of left total knee replacement 5713593606 698434 Z96.652 Aftercare 410129618 Z47. 1 [id number] MD [facility] [address] [place] [address] 01/30/2024 09:00:44 01/30/2024 09:36:01 History of left total knee replacement 1038910657 097432 Z96.652 Health Concerns Section Related Observation LastModified by Organization Detai ls LastModified Time None Recorded Concern Status LastModified by Organization Details LastModified Time None Recorded Advance Directives Directive None Recorded Payers Encounter Date Sequence Insurance Name Policy Number Policy Rosario Covered Member ID Rosario Member ID Guarantor Name 01/21/2023 1 [employer] - CHOICE (POS II) [id number] Rita Pineda [id number] Rita Pineda 01/28/2023 1 [employer] - CHOICE (POS II) [id number] Rita Pineda [id number] Rita Pineda 03/01/2023 1 [employer] - CHOICE (POS II) [id number] Rita Pineda [id number] Rita Pineda 04/26/2023 1 [employer] - CHOICE (POS II) [id number] Rita Pineda [id number] Rita Pineda 01/30/2024 1 [facility] TYPE I (O) [id number] Rita Pineda [id number] Rita Pineda Notes Date Note Type [...] arthritis . Non-smoker. 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 PRIOR BK:62-year-old female here for follow-up on her MRI results of her left shoulder pain. No interval change since her visit on 12/06/2022 ongoing weakness and discomfort.States however her range of motion has improved somewhat. Owen Casillas MD [address] [place] [address], [place], [address], [place] [facility] 01/22/2023 08:37:07 OBGyn Episode No OBEpisode recorded.
--- OUTSIDE RECORDS SUMMARY | 2024-04-28 10:18 | XMS_ITS ---
[facility] Name [facility] History of Medication Use Medication Directions Dispensed Refills Start Date End Date [facility] scopolamine 1 mg over 3 days transdermal patch PLEASE SEE ATTACHED FOR DETAILED DIRECTIONS 02/02/2024 active lorazepam 0.5 mg tablet TAKE 1 TABLET BY MOUTH EVERYDAY AT BEDTIME 02/01/2024 completed meloxicam 15 mg tablet TAKE 1 TABLET BY MOUTH EVERY DAY FOR 15 DAYS 01/25/2023 completed lidocaine (PF) 10 mg/mL (1 %) injection solution Take 2 mL by injection route. 10/14/2022 completed amoxicillin 500 mg capsule TAKE 4 TABLETS ONE HOUR PRIOR TO DENTAL PROCEDURE 04/29/2023 completed ondansetron 8 mg disintegrating tablet TAKE 1 TABLET DISSOLVED UNDER THE TONGUE EVERY 8 HOURS NEEDED FOR NAUSEA. 01/25/2023 completed Kenalog 40 mg/mL suspension for injection Take 1 mL by injection route. 10/14/2022 completed pantoprazole 40 mg tablet,delayed release TAKE 1 TABLET BY MOUTH EVERY DAY 01/25/2023 active Tylenol Extra Strength 500 mg tablet Take 2 tablets every 8 hours by oral route for 28 days. 01/25/2023 active oxycodone 5 mg tablet TAKE 1-2 TABLETS BY MOUTH EVERY 4 HOURS NEEDED FOR PAIN 01/25/2023 completed aspirin 81 mg tablet,delayed release TAKE 1 TABLET BY MOUTH TWICE A DAY FOR 28 DAYS 01/25/2023 active Senexon-S 8.6 mg-50 mg tablet TAKE 1 TABLET BY MOUTH TWICE A DAY 01/25/2023 completed metoprolol succinate ER 50 mg tablet,extended release 24 hr TAKE 1 TABLET BY MOUTH EVERY DAY 10/14/2022 completed diclofenac ER 100 mg tablet,extended release 24 hr TAKE 1 TABLET BY MOUTH TWICE A DAY 10/14/2022 active methocarbamol 750 mg tablet TAKE 1 TABLET BY MOUTH EVERY 6 HOURS NEEDED 01/25/2023 completed Problems Problem Status Onset Date Problem Type Date of Resoluti on Source Full thickness rotator cuff tear active 2022-12-21 ProblemAct [facility] Arthritis of knee active 2022-11-30 ProblemAct [facility] Rupture of rotator cuff of left shoulder active 2022-12-06 ProblemAct [facility] Rupture of tendon of biceps active 2022-12-21 ProblemAct [facility] Instability of joint of left knee active 2022-10-12 ProblemAct [facility] History of left total knee replacement active 2023-01-28 ProblemAct [facility] Osteoarthritis of left knee joint active 2022-10-12 ProblemAct [facility] Pain of left shoulder joint active 2022-12-06 ProblemAct [facility]
--- OUTSIDE RECORDS SUMMARY | 2024-04-28 10:18 | XMS_ITS | Continuity of Care Document ---
Author Organization [place] [facility] Yoshi Bain [place] Address [address] [facility] [address] [place] [address] Assessment Encounter Date Assessment Date Assessment LastModified by Organization Details LastModified Time 01/30/2024 01/30/2024 HPI : Patient is here for 1 year follow-up for a left total knee replacement.? ? Patient reports good pain relief in the knee and satisfactory druze of function in terms of activities of [...] after knee arthroplasty. Continue knee conditioning exercises. [id number] medications as needed. The patient understands that [...] knee, 3 view 024 01/30/20 24 [email or web address] [facility] [place] [facility], [address], [address], [place], [address], 4 09:50:31 Medication Orders None record ed. Patient TargetsNo targets recorded. Patient InstructionsNo instructions recorded. Reason for Referral None Reported. Problems Name Problem SNOMED Code Status Onset Date Resolution Date Notes Provider Name and Address Organization Details Recorded Time Arthritis of knee 948665860 Active 2022 Federico Crocker MD [address], [place], [address], [place] [facility] [place], P 3 11:51:10 Pain of left shoulder joint 8156931997160 9109 Active 2022 Tasneem Presley null, [place] [facility] [place], P 3 15:26:18 Rupture of rotator cuff of left shoulder 3031175866199 9102 Active 2022 CINDI YOUSSEF PA-C [address], [place], [address], [place] [facility] [place], P 3 15:43:46 Rupture of tendon of biceps 953479569 Active 2022 CINDI YOUSSEF PA-C [address], [place], [address], [place] [facility] [place], P 3 06:53:56 Full thickness rotator cuff tear 677847843 Active 2022 CINDI YOUSSEF PA-C [address], [place], [address], [place] [facility] [place], P 3 06:54:15 History of left total knee replacement 8283159542525 105 Active 2022 CINDI JANE PA-C [address], [place], [address], [place] [facility] [place], P 3 11:29:51 Osteoarthri tis of left knee joint 4495844770463 09 Active 2022 CINDI YOUSSEF PA-C [address], [place], [address], [place] [facility] [place], P 3 08:34:00 Instability of joint of left knee 7231961720717 106 Active 2022 CINDI YOUSSEF PA-C [address], [place], [address], [place] [facility] [place], P 3 08:34:10 Problem Notes None recorded. Procedures Surgical History Date Name Laterality Status Provider Name and Address Organization Details Recorded Time 10/10/2022 Knee Joint/Burs a Asp & Inj completed CINDI YOUSSEF PA-C [address], [place], [address], [place] [facility] [place], P 10/12/2022 08:32:56 Imaging Results None recorded. [...] Updated DateTime 01/30/2024 177.8 cm 35.7 kg/m2 609712.5 g Coretta García [place] [facility] [place], [facility] 01/30/2024 09:12:51 Social History Question Answer Notes LastModified by Organizat ion Details LastModified Time Tobacco Smoking Status Never Smoker Yanique porter, [place] [facility] [place], P 10/10/2022 15:16:33 What Is Your Level Of Alcohol Consumption? None [email or web address] Information not available 10/10/2022 Do You Use Any Illicit Or Recreational Drugs? No Information not available 10/10/2022 Do You Or Have You Ever Used Any Other Forms Of Tobacco Or Nicotine? No Information not available 10/10/2022 Sex: Unknown Functional Status None recorded. Mental Status None recorded. Family History Relationship Description Onset Age of this Age Resolved Age Notes LastModified by Organization Details LastModified Time Father Family history of malignant neoplasm [email or web address] Not available 2022 15:16:56 Father Diabetes mellitus [email or web address] Not available 2022 15:17:05 Father History of hypertension [email or web address] Not available 15:17:26 Mother Family history of malignant neoplasm [email or web address] Not available 2022 15:16:56 Mother History of hypertension Not available 15:17:26 Medical History Condition Response Hypertension Y Gynecological HistoryNo gynecological history recorded. Obstetrics History GPAL:G 0 P 0 0 0 0 Past Encounters Encounter ID Performer Location Encounter Start Date Encounter Closed Date Diagnosis/Indication Diagnosis SNOMED-CT Code Diagnosis ICD10 Code [id number] MD CHRISS Altamirano [address] [address] 01/30/2024 09:00:44 01/30/2024 09:36:01 History of left total knee replacement 1995980142 504220 Z96.652 Health Concerns Section Related Observation LastModified by Organization Detai ls LastModified Time None Recorded Concern Status LastModified by Organization Details LastModified Time None Recorded Payers Encounter Date Sequence Insurance Name Policy Number Policy Rosario Covered Member ID Rosario Member ID Guarantor Name 01/30/2024 1 [facility] test company PLANS [facility] TYPE I (HMO) [id number] Rita Pineda [id number] 1 Rita Pineda OBGyn Episode No OBEpisode recorded.
--- NOTE | 2024-04-28 10:26 | A.OFFVIS_ITS ---
Intake Visit Reasons: PO-Lt RTC Repair 04/22/24 NE Intake Note: Rita is a 63 year old female who presents to the office today for a PO- left RTC Repair 04/22/24 NE. Patient states her pain has gotten better, however her pain is still persistent. Allergies No Known Allergies Allergy (Verified 04/28/24 10:27) HPI HPI PO-Lt RTC Repair 04/22/24 NE: Details: 63-year-old female who presents in the office today 6 days status post left rotator cuff repair, which was performed on 04/22/[address] Hardy. While in the office today, the patient reports persistent left shoulder pain; however, she states her pain has improved that before. [facility] Medical History Left shoulder pain Osteoarthritis HTN (hypertension) PONV (postoperative nausea and vomiting) Surgical History History of Hx of tubal ligation (~1981) History of loop electrosurgical excision procedure (LEEP) (08/01/23) Hx of colonoscopy S/P right knee arthroscopy History of cholecystectomy (~1982) Hx of laparoscopic gastric banding (2006) History of left knee replacement (01/15/23) History of repair of right rotator cuff (~2021) Social History Are you a primary care director rn to a significant other at home: Yes (Brother-other family members assist) Do you presently have visiting nurse or other home services: No Patient Tobacco Use Status: Never used Tobacco Current occupational status: employed 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 Sutures are intact. No surrounding erythema or drainage. No signs of infection. 45 forward flexion and abduction. External rotation to neutral. NVI. Assessment & Plan Assessment & Plan (1) Rotator cuff tear, left: Code(s): M75.102 - Unspecified rotator cuff tear or rupture of left shoulder, not specified as traumatic Category: Medical Plan Ms. Pineda is a 63-year-old female who presents in the office today 6 days status post left rotator cuff repair, which was performed on 04/22/[address] Hardy. While in the office today, the patient reports persistent left shoulder pain; however, she states her pain has improved that before. Sutures were removed and steri-strips were applied. The sling will remain in place for 6 weeks post-operatively. I have placed a referral to physical therapy to begin STAT. Follow-up will be in [address] Hardy, or sooner if needed. Orders: Orders PT Evaluation and Treatment Today M75.102 - Unspecified rotator cuff tear or rupture of left shoulder, not specified as traumatic, Z98.890 - Other specified postprocedural states Patient Instructions: Scribed by Ivana White medical record administrator, for Consuelo Manzo PA-C on 04/28/24 at 11:25 am EST. Coding Level of Care Code Global (87333) Diagnoses Rotator cuff tear, left M75.102
== END 2024-04-28 10:50 | disposition home or self-care (01) ==
PROVIDERS: Visit Provider Physician Assistant
DX: M75.102 Unspecified rotator cuff tear or rupture of left shoulder, not specified as traumatic (principal)
CPT/HCPCS: 99024

== ENCOUNTER → 2024-04-28 10:16 | Outpatient (BNVA) | payer OTHER, SELFPAY | PROVIDERS: Visit Provider Physician Assistant | DX: M75.102 Unspecified rotator cuff tear or rupture of left shoulder, not specified as traumatic (principal) | CPT/HCPCS: 99212 ==

== ENCOUNTER 2024-06-11 10:50 | Outpatient (AMB) | payer OTHER, SELFPAY ==
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
--- OUTSIDE RECORDS SUMMARY | 2024-06-11 14:36 | XMS_ITS | Clinical Summary ---
Author Organization [facility] Address [address] [place] [address] Care Team Providers Care [employer] Machine Mechanic Name Role Phone Unknown, Primary Care Provider Unavailabl e Allergies No known active allergies Medications Medication Sig Dispensed Refills Start Date End Date Status Diclofenac Sodium ER 100 MG 24 hr tablet Take 100 mg by mouth. 0 11/07/2020 Active metoprolol succinate (TOPROL-XL) 24 hr tablet 50 mg Take 1 tablet (50 mg total) by mouth daily. 0 10/03/2021 Active Folic Acid 20 MG CAPS Take by mouth. 0 Active Cholecalciferol (VITAMIN D3 PO) Take by mouth. 0 Activ e Apple Cider Vinegar 500 MG TABS Take by mouth. 0 Active Multiple Vitamins-Minerals (MULTIVIT/MULTIMINERAL ADULT PO) Take by mouth. 0 Active Biotin 10 MG CHEW Chew by mouth. 0 Act usha calcium carbonate (OS-LOUISE) 1250 (500 Ca) MG tablet Take 1 tablet (1,250 mg total) by mouth daily. 0 Active Active Problems Problem Noted Date Diagnosed Date Postoperative nausea and vomiting 01/04/2023 History of gastroesophageal reflux (GERD) 2022 History of bariatric surgery 01/04/2023 History of hypertension 01/02/2023 Arthritis of knee, left 01/03/2022 Family History Medical History Relation Name Comments Arthritis Father Cancer Father Diabetes Father Hypertension Father Heart attack Maternal Grandmother Arthritis Mother Cancer Mother Hypertension Mother Relation Name Status Comments Father Maternal Grandmother Mother Social History Tobacco Use Types Packs/Day Years Used Date Smoking Tobacco: Never Smokeless Tobacco: Never Alcohol Use Standard Drinks/Week Comments Not Currently 0 (1 standard drink = 0.6 oz pur e alcohol) Sex and Gender Information Value Date Recorded Sex Assigned at Female 01/04/2023 1:09 PM EDT Gender Identity Not on file Sexual Orientation Not on file Job Start Date Occupation Industry Not on file Not on file Not on file Last Filed Vital Signs Vital Sign Reading Time Taken Comments Blood Pressure 125/67 01/04/2023 1:40 PM EDT Pulse 60 01/04/2023 1:40 PM EDT Temperature 35.9 ??C (96.6 ??F) 01/04/2023 1:40 PM ED T Respiratory Rate 16 01/04/2023 1:40 PM EDT Oxygen Saturation 99% 01/04/2023 1:40 PM EDT Inhaled Oxygen Concentration - - Weight 97.5 kg (215 lb) 01/04/2023 1:40 PM EDT Height 172 cm (5' 7.72 ) 01/04/2023 1:40 PM EDT Body Mass Index 32.96 01/04/2023 1:40 PM EDT Plan of Treatment Health Maintenance Due Date Last Done Comments Hepatitis C Screening 1959 Depression Screening 1971 BMI Counseling 08/10/1977 Preventative Health Evaluation 08/10/1977 DTap / Tdap / Td (1 - Tdap) 08/10/1978 Cervical Cancer Screening (Pap Smear) 08/10/1980 Colon Cancer Screening (Colonoscopy) 08/10/2004 Breast Cancer Screening (Mammogram) 08/10/2009 Shingrix-Zoster Vaccine (1 o f 2) 08/10/2009 COVID-19 Vaccine (3 - 2023-2 5 season) 2024 07/05/2020, 06/07/2020 Influenza Vaccine (#1) 2024 02/01/2016 Pneumococcal Vaccine (1 of 1 - PCV) 08/10/2024 RSV Adult > 60+ Yrs or (1 - 1-dose 75+ series) 08/10/2034 Hepatitis B Vaccines Aged Out No long er eligible based on patient's age to complete this topic Pneumococcal Vaccine Aged Out No long er eligible based on patient's age to complete this topic RSV Ped < 20 months Aged Out No longe r eligible based on patient's age to complete this topic Care Teams [employer] Machine Mechanic Relationship Specialty Start Date End Date Unknown, PCP - General 12/18/22
--- OUTSIDE RECORDS SUMMARY | 2024-06-11 14:36 | XMS_ITS | Data Portability ---
Author Organization [place] [facility] Yoshi Bain AONE [place] Address [address] [place] [address] Assessment Encounter Date Assessment Date Assessment LastModified [...] put her in touch with the surgical product sales consultant so we can start thinking about things. [...] rotator cuff protective measures. She can take ivhy-pwr-letovpk pain medication for symptomatic relief. She agrees [...] shortly after her MRI. She can take qogp-lsv-xjvdaum pain medication and topical treatments for symptomatic [...] pain relief in the knee and satisfactory evangelical of function in terms of activities of [...] total knee arthroplasty. Continue knee conditioning exercises. Zhkp-mqg-lwrlods medications as needed. Ultimate failure may occur [...] pain relief in the knee and satisfactory evangelical of function in terms of activities of [...] after knee arthroplasty. Continue knee conditioning exercises. Neau-udp-hsxqems medications as needed. The patient understands that [...] knee, 3 view 2022 023 [facility], [address], [place], [address], 3 11:55:21 XR, knee, 3 view 2023 024 [email or web address] [facility], [address], [address], [place], [address], 4 09:50:31 Medication Orders None recorded. Patient TargetsNo targets recorded. Patient Instructions Encounter Date Encounter Id Patient Instructions Last Modified By Organization Details Last Modified Time 01/28/2023 [id number] physical therapy * - Diagnosis: s/p L TKA Evaluate and treat as indicated to reduce pain and to improve mobility, range of motion, and function. Please teach a home exercise plan and incorporate PT into patient's exercise routine. 2-3 sessions weekly for 6 weeks. [email or web address] Not available 02/04/2023 08:25:56 04/26/2023 [id number] AP, lateral, and patellar radiographs of the left knee taken today demonstrate satisfactory position and alignment of components following left total knee replacement. Not available 04/26/2023 09:55:52 Reason for Referral None Reported. Problems Name Problem SNOMED Code Status Onset Date Resolution Date Notes Provider Name and Address Organization Details Recorded Time Arthritis of knee 302622702 Active 2022 Federico Crocker MD [address], [place], [address], [place] [facility] 3 11:51:10 Pain of left shoulder joint 9627263711620 9109 Active 2022 Tasneemryan JamesPresley null, [place] [facility] 3 15:26:18 Rupture of rotator cuff of left shoulder 8833781286543 9102 Active 2022 CINDI YOUSSEF PA-C [address], [place], [address], [place] [facility] 3 15:43:46 Rupture of tendon of biceps 297791494 Active 2022 CINDI YOUSSEF PA-C [address], [place], [address], [place] [facility] 3 06:53:56 Full thickness rotator cuff tear 863908628 Active 2022 CINDI YOUSSEF PA-C [address], [place], [address], [place] [facility] 3 06:54:15 History of left total knee replacement 5554986110827 105 Active 2022 CINDI JANE PA-C [address], [place], [address], [place] [facility] 3 11:29:51 Osteoarthri tis of left knee joint 5865332267463 09 Active 2022 CINDI YOUSSEF PA-C [address], [place], [address], [place] [facility] 3 08:34:00 Instability of joint of left knee 1771303441698 106 Active 2022 CINDI YOUSSEF PA-C [address], [place], [address], [place] [facility] 3 08:34:10 Problem Notes None recorded. Procedures Surgical History Date Name Laterality Status Provider Name and Address Organization Details Recorded Time 10/10/2022 Knee Joint/Burs a Asp & Inj completed CINDI YOUSSEF PA-C [address], [place], [address], [place] [facility] 10/12/2022 08:32:56 Imaging Results None recorded. [...] Updated DateTime 04/26/2023 177.8 cm Marimar Stanton [place] [facility] 04/26/2023 09:14:13 Date Recorded Body height Body mass index (BMI) Body weight Provider Name and Address Organization Details Last Updated DateTime 01/30/2024 177.8 cm 35.7 kg/m2 666965.5 g Coretta García [place] [facility] 01/30/2024 09:12:51 Date Recorded Body height Provider Name an d Address Organization Details Last Updated DateTime 01/21/2023 177.8 cm Yanique Jackson [place] [facility] 01/21/2023 12:52:51 Date Recorded Body height Body mass index (BMI) Body weight Provider Name and Address Organization Details Last Updated DateTime 01/28/2023 177.8 cm 38.3 kg/m2 481201.16 g Quan Marks [facility] 01/28/2023 11:20:36 Date Recorded Body height Body mass index (BMI) Body weight Provider Name and Address Organization Details Last Updated DateTime 03/01/2023 177.8 cm 38.3 kg/m2 841638.16 g Quan Marks [facility] 03/01/2023 13:30:27 Social History Question Answer Notes LastModified by Organizat ion Details LastModified Time Tobacco Smoking Status Never Smoker Yanique Jackson null, [place] [facility] 10/10/2022 15:16:33 What Is Your Level Of Alcohol Consumption? None Information not available 10/10/2022 Do You Use Any Illicit Or Recreational Drugs? No [email or web address] Information not available 10/10/2022 Do You Or Have You Ever Used Any Other Forms Of Tobacco Or Nicotine? No [email or web address] Information not available 10/10/2022 Sex: Unknown Functional Status None recorded. Mental Status None recorded. Family History Relationship Description Onset Age of this Age Resolved Age Notes LastModified by Organization Details LastModified Time Father Family history of malignant neoplasm [email or web address] Not available 2022 15:16:56 Father Diabetes mellitus [email or web address] Not available 2022 15:17:05 Father History of hypertension [email or web address] Not available 15:17:26 Mother Family history of malignant neoplasm [email or web address] Not available 2022 15:16:56 Mother History of hypertension [email or web address] Not available 15:17:26 Medical History Condition Response Hypertension Y Gynecological HistoryNo gynecological history recorded. Obstetrics History GPAL:G 0 P 0 0 0 0 Past Encounters Encounter ID Performer Location Encounter Start Date Encounter Closed Date Diagnosis/Indication Diagnosis SNOMED-CT Code Diagnosis ICD10 Code Diagnosis Note [id number] MD CHRISS Altamirano [address] [address] 10/10/2022 14:34:51 10/10/2022 15:56:08 Osteoarthritis of left knee joint 0102124255 52397 M17.12 Instabilit y of joint of left knee 7537731440 980287 M25.362 [id number] MD CHRISS Altamirano [address] [address] 11/30/2022 10:57:24 11/30/2022 12:04:05 Pain of left knee joint 8733594837 49503 M25.562 Osteoarthr itis of left knee joint 6222790235 97707 M17.12 Arthritis of knee 126264 002 M13.869 [id number] MD CHRISS Altamirano 299 [facility] [address] [place] [address] 12/06/2022 15:04:33 12/06/2022 15:49:35 Pain of left shoulder joint 9317857848 3344488 M25.512 Rupture of rotator cuff of left shoulder 3200845547 5212565 M75.102 [id number] MD CHRISS Bassett [place] [address] [facility] [address] [place] [address] 12/20/2022 14:59:56 12/20/2022 15:29:52 Full thickness rotator cuff tear 809200338 M75.122 Rupture of tendon of biceps 060846960 M66.829 [id number] MD CHRISS Bassett [place] [address] [address] [place] [address] 01/21/2023 12:47:22 01/21/2023 13:08:50 Full thickness rotator cuff tear 140751881 M75.122 Rupture of tendon of biceps 381995344 M66.829 [id number] MD CHRISS Altamirano [place] [address] [place] [address] 01/28/2023 11:01:32 01/28/2023 11:30:49 History of left total knee replacement 9070918710 792431 Z96.652 [id number] MD CHRISS Altamirano [place] [address] [place] [address] 03/01/2023 13:18:20 03/01/2023 13:53:25 History of left total knee replacement 3611034858 266024 Z96.652 Aftercare 805973566 Z47. 1 [id number] MD CHRISS Altamirano [place] [address] [place] [address] 04/26/2023 08:55:11 04/26/2023 10:00:56 History of left total knee replacement 6071014111 227294 Z96.652 Aftercare 816473492 Z47. 1 [id number] MD CHRISS Altamiranodenisa [address] [place] [address] 01/30/2024 09:00:44 01/30/2024 09:36:01 History of left total knee replacement 8723472678 693749 Z96.652 Health Concerns Section Related Observation LastModified by Organization Detai ls LastModified Time None Recorded Concern Status LastModified by Organization Details LastModified Time None Recorded Advance Directives Directive None Recorded Payers Encounter Date Sequence Insurance Name Policy Number Policy Rosario Covered Member ID Rosario Member ID Guarantor Name 01/21/2023 1 [employer] - CHOICE (POS II) [id number] Rita Pineda [id number] Rita Pineda 01/28/2023 1 [employer] - CHOICE (POS II) [id number] Rita Pineda [id number] Rita Pineda 03/01/2023 1 [employer] - CHOICE (POS II) [id number] Rita Pineda [id number] Rita Pindea 04/26/2023 1 [employer] - CHOICE (POS II) [id number] Rita Pineda [id number] Rita Pineda 01/30/2024 1 [facility] TYPE I (O) [id number] Rita Pineda [id number] Rita Pineda Notes Date Note Type [...] arthritis . Non-smoker. 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 PRIOR BK:62-year-old female here for follow-up on her MRI results of her left shoulder pain. No interval change since her visit on 12/06/2022 ongoing weakness and discomfort.States however her range of motion has improved somewhat. Owen Casillas MD [address] [place] [address], [place], [address], [place] [facility] 01/22/2023 08:37:07 OBGyn Episode No OBEpisode recorded.
== END 2024-06-11 11:26 | disposition home or self-care (01) ==
PROVIDERS: PCP Pediatrics; Visit Provider Orthopaedic Surgery
DX: Z98.890 Other specified postprocedural states (principal)
CPT/HCPCS: 99024

== ENCOUNTER → 2024-06-11 10:50 | Outpatient (BNVA) | payer OTHER, SELFPAY | PROVIDERS: PCP Pediatrics; Visit Provider Orthopaedic Surgery | DX: Z47.89 Encounter for other orthopedic aftercare (principal); Z98.890 Other specified postprocedural states | CPT/HCPCS: 99212 ==

== ENCOUNTER 2024-07-22 09:45 | Outpatient (AMB) | payer OTHER, SELFPAY ==
--- NOTE | 2024-07-22 09:52 | MHC.OFFVIS ---
Intake Visit Reasons: OV Lt RTC Repair 04/22/24 NE Intake Note: Rita is a 63 year old female who presents today for a follow up of her Lt RTC Repair 04/22/24 NE. Patient reports she is doing fairly well. She has been working with PT and she notices that she is still stiff and unable to lift her arm up. Patient informed me that she tripped in the beginning of June but she didn't fall or hit her left side. She did in fact hit her right knee and shoulder. Allergies No Known Allergies Allergy (Verified 07/22/24 09:58) HPI HPI OV Lt RTC Repair 04/22/24 NE: Details: Ms. Pineda this is a 63-year-old female who presents to the office today status post left shoulder rotator cuff repair with collagen patch performed on 04/22/[address] Hardy. Patient has been attending physical therapy but has a high co-pay 55 dollars for each visit. She has also been performing a home exercise program. However, the patient is continuing to struggle with range of motion. She did fall last month but landed on the opposite side and does not believe that she re-injured her left shoulder. [facility] Medical History Left shoulder pain Osteoarthritis HTN (hypertension) PONV (postoperative nausea and vomiting) Surgical History History of Hx of tubal ligation (~1981) History of loop electrosurgical excision procedure (LEEP) (08/01/23) Hx of colonoscopy S/P right knee arthroscopy History of cholecystectomy (~1982) Hx of laparoscopic gastric banding (2006) History of left knee replacement (01/15/23) History of repair of right rotator cuff (~2021) Social History Are you a primary point of care specialist to a significant other at home: Yes (Brother-other family members assist) Do you presently have visiting nurse or other home services: No Patient Tobacco Use Status: Never used Tobacco Current occupational status: employed 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 Abduction to 45 degrees. External rotation to 45 degrees. NVI. Assessment & Plan Assessment & Plan (1) Status post rotator cuff repair: Code(s): Z98.890 - Other specified postprocedural states Category: Surgical (2) Rotator cuff tear, left: Code(s): M75.102 - Unspecified rotator cuff tear or rupture of left shoulder, not specified as traumatic Category: Medical (3) Left shoulder pain: Code(s): M25.512 - Pain in left shoulder Category: Medical Plan Ms. Pineda this is a 63-year-old female who presents to the office today status post left shoulder rotator cuff repair with collagen patch performed on 04/22/[address] Hardy. Patient has been attending physical therapy but has a high co-pay 55 dollars for each visit. She has also been performing a home exercise program. However, the patient is continuing to struggle with range of motion. She did fall last month but landed on the opposite side and does not believe that she re-injured her left shoulder. While in the office today, I discussed with the patient the importance of continuing with physical therapy at least 2 times a week really focusing on her range of motion. I will have the patient follow up in [address] Hardy for shnxw-xl-bioazy check, sooner if needed. Coding Level of Care Code Est Pt Level 3 (04450) Diagnoses Status post rotator cuff repair Z98.890 Rotator cuff tear, left M75.102 Left shoulder pain M25.512
--- OUTSIDE RECORDS SUMMARY | 2024-07-22 10:51 | XMS_ITS | Data Portability ---
Author Organization [place] [facility] Yoshi Bain AONE [place] Address [address] [place] [address] Assessment Encounter Date Assessment Date Assessment LastModified [...] put her in touch with the surgical appliance fitter so we can start thinking about things. [...] rotator cuff protective measures. She can take ajgv-uik-xvzscjo pain medication for symptomatic relief. She agrees [...] shortly after her MRI. She can take awwd-xky-pjavbpo pain medication and topical treatments for symptomatic [...] pain relief in the knee and satisfactory sikh of function in terms of activities of [...] total knee arthroplasty. Continue knee conditioning exercises. Rzmn-mmb-qqgwjxf medications as needed. Ultimate failure may occur [...] pain relief in the knee and satisfactory sikh of function in terms of activities of [...] after knee arthroplasty. Continue knee conditioning exercises. Abae-iax-wqhbyfa medications as needed. The patient understands that [...] 3 08:56:08 Imaging XR, knee, 3 view 2023 024 [email or web address] [facility], [address], [address], [place], [address], 4 09:50:31 XR, knee, 3 view 2022 023 [facility], [address], [address], [place], [address], 3 11:55:21 Medication Orders None recorded. Patient TargetsNo targets recorded. Patient Instructions Encounter Date Encounter Id Patient Instructions Last Modified By Organization Details Last Modified Time 01/28/2023 [id number] physical therapy * - Diagnosis: s/p L TKA Evaluate and treat as indicated to reduce pain and to improve mobility, range of motion, and function. Please teach a home exercise plan and incorporate PT into patient's exercise routine. 2-3 sessions weekly for 6 weeks. [email or web address] Not available 02/04/2023 08:25:56 04/26/2023 [id number] AP, lateral, and patellar radiographs of the left knee taken today demonstrate satisfactory position and alignment of components following left total knee replacement. Not available 04/26/2023 09:55:52 Reason for Referral None Reported. Problems Name Problem SNOMED Code Status Onset Date Resolution Date Notes Provider Name and Address Organization Details Recorded Time Arthritis of knee 157889838 Active 2022 Federico Crocker MD [address], [place], [address], [place] [facility] 3 11:51:10 Pain of left shoulder joint 0626218474881 9109 Active 2022 Tasneemryan JamesPresley null, [place] [facility] 3 15:26:18 Rupture of rotator cuff of left shoulder 7960099867249 9102 Active 2022 CINDI YOUSSEF PA-C [address], [place], [address], [place] [facility] 3 15:43:46 Rupture of tendon of biceps 105870764 Active 2022 CINDI YOUSSEF PA-C [address], [place], [address], [place] [facility] 3 06:53:56 Full thickness rotator cuff tear 955477354 Active 2022 CINDI YOUSSEF PA-C [address], [place], [address], [place] [facility] 3 06:54:15 History of left total knee replacement 8184782845704 105 Active 2022 CINDI JANE PA-C [address], [place], [address], [place] [facility] 3 11:29:51 Osteoarthri tis of left knee joint 9751045178454 09 Active 2022 CINDI YOUSSEF PA-C [address], [place], [address], [place] [facility] 3 08:34:00 Instability of joint of left knee 2097939370097 106 Active 2022 CINDI YOUSSEF PA-C 299 [facility],[address], [place], [address], [place] [facility] 3 08:34:10 Problem Notes None recorded. Procedures Surgical History Date Name Laterality Status Provider Name and Address Organization Details Recorded Time 10/10/2022 Knee Joint/Burs a Asp & Inj completed CINDI YOUSSEF PA-C 299 [facility],[address], [place], [address], [place] [facility] 10/12/2022 08:32:56 Imaging Results None recorded. [...] Updated DateTime 04/26/2023 177.8 cm Marimar Stanton [place] - [facility] 04/26/2023 09:14:13 Date Recorded Body height Body mass index (BMI) Body weight Provider Name and Address Organization Details Last Updated DateTime 01/30/2024 177.8 cm 35.7 kg/m2 042691.5 g Coretta García [place] - [facility] 01/30/2024 09:12:51 Date Recorded Body height Provider Name an d Address Organization Details Last Updated DateTime 01/21/2023 177.8 cm Yanique Jackson [place] - [facility] 01/21/2023 12:52:51 Date Recorded Body height Body mass index (BMI) Body weight Provider Name and Address Organization Details Last Updated DateTime 01/28/2023 177.8 cm 38.3 kg/m2 550101.16 g Quan Marks [facility] 01/28/2023 11:20:36 Date Recorded Body height Body mass index (BMI) Body weight Provider Name and Address Organization Details Last Updated DateTime 03/01/2023 177.8 cm 38.3 kg/m2 351114.16 g Quan Marks [facility] 03/01/2023 13:30:27 Social History Question Answer Notes LastModified by Organizat ion Details LastModified Time Tobacco Smoking Status Never Smoker Yanique Jackson null, [place] [facility] 10/10/2022 15:16:33 What Is Your Level Of Alcohol Consumption? None [email or web address] Information not available 10/10/2022 Do You Use Any Illicit Or Recreational Drugs? No [email or web address] Information not available 10/10/2022 Do You Or Have You Ever Used Any Other Forms Of Tobacco Or Nicotine? No Information not available 10/10/2022 Sex: Unknown Functional Status None recorded. Mental Status None recorded. Family History Relationship Description Onset Age of this Age Resolved Age Notes LastModified by Organization Details LastModified Time Father Family history of malignant neoplasm [email or web address] Not available 2022 15:16:56 Father Diabetes mellitus [email or web address] Not available 2022 15:17:05 Father History of hypertension [email or web address] Not available 15:17:26 Mother Family history of malignant neoplasm [email or web address] Not available 2022 15:16:56 Mother History of hypertension [email or web address] Not available 15:17:26 Medical History Condition Response Hypertension Y Gynecological HistoryNo gynecological history recorded. Obstetrics History GPAL:G 0 P 0 0 0 0 Past Encounters Encounter ID Performer Location Encounter Start Date Encounter Closed Date Diagnosis/Indication Diagnosis SNOMED-CT Code Diagnosis ICD10 Code Diagnosis Note [id number] MD CHRISS Altamirano [address] [address] 10/10/2022 14:34:51 10/10/2022 15:56:08 Osteoarthritis of left knee joint 5257696907 39951 M17.12 Instabilit y of joint of left knee 7762334746 383532 M25.362 [id number] MD CHRISS Altamirano [address] [address] 11/30/2022 10:57:24 11/30/2022 12:04:05 Pain of left knee joint 7068936752 24618 M25.562 Osteoarthr itis of left knee joint 8037360367 90820 M17.12 Arthritis of knee 559133 002 M13.869 [id number] MD CHRISS Altamirano 299 [facility] [address] [place] [address] 12/06/2022 15:04:33 12/06/2022 15:49:35 Pain of left shoulder joint 3599711676 4910576 M25.512 Rupture of rotator cuff of left shoulder 3738625706 4986715 M75.102 [id number] MD CHRISS Bassett [place] [address] [facility] [address] [place] [address] 12/20/2022 14:59:56 12/20/2022 15:29:52 Full thickness rotator cuff tear 981397551 M75.122 Rupture of tendon of biceps 559257023 M66.829 [id number] MD CHRISS Bassett [place] [address] [address] [place] [address] 01/21/2023 12:47:22 01/21/2023 13:08:50 Full thickness rotator cuff tear 504201470 M75.122 Rupture of tendon of biceps 139472050 M66.829 [id number] MD CHRISS Altamirano [address] [place] [address] 01/28/2023 11:01:32 01/28/2023 11:30:49 History of left total knee replacement 2574424022 272023 Z96.652 [id number] MD CHRISS Altamirano [place] [address] [place] [address] 03/01/2023 13:18:20 03/01/2023 13:53:25 History of left total knee replacement 6904041362 276931 Z96.652 Aftercare 372700180 Z47. 1 [id number] MD CHRISS Altamirano [place] [address] [place] [address] 04/26/2023 08:55:11 04/26/2023 10:00:56 History of left total knee replacement 1123327856 860760 Z96.652 Aftercare 423867886 Z47. 1 [id number] MD CHRISS Alt[place]anodenisa [address] [place] [address] 01/30/2024 09:00:44 01/30/2024 09:36:01 History of left total knee replacement 6933739902 893171 Z96.652 Health Concerns Section Related Observation LastModified by Organization Detai ls LastModified Time None Recorded Concern Status LastModified by Organization Details LastModified Time None Recorded Advance Directives Directive None Recorded Payers Encounter Date Sequence Insurance Name Policy Number Policy Rosario Covered Member ID Rosario Member ID Guarantor Name 01/21/2023 1 [employer] - CHOICE (POS II) [id number] Rita Pineda [id number] Rita Pineda 01/28/2023 1 [employer] - CHOICE (POS II) [id number] Rita Pineda [id number] Rita Pineda 03/01/2023 1 [employer] - CHOICE (POS II) [id number] Rita Pineda [id number] Rita Pineda 04/26/2023 1 [employer] - CHOICE (POS II) [id number] Rita Pineda [id number] Rita Pineda 01/30/2024 1 [facility] TYPE I (O) [id number] Rita Pineda [id number] Rita Pineda Notes Date Note Type Note [...] arthritis . Non-smoker. 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 PRIOR BK:62-year-old female here for follow-up on her MRI results of her left shoulder pain. No interval change since her visit on 12/06/2022 ongoing weakness and discomfort.States however her range of motion has improved somewhat. Owen Casillas MD [address] [place] [address], [place], [address], [place] [facility] 01/22/2023 08:37:07 OBGyn Episode No OBEpisode recorded.
--- OUTSIDE RECORDS SUMMARY | 2024-07-22 10:51 | XMS_ITS | Clinical Summary ---
Author Organization [facility] Address [address] [place] [address] Care Team Providers Care Cow Puncher Name Role Phone Unknown, Primary Care Provider [...] age to complete this topic Care Teams Cow Puncher Relationship Specialty Start Date End Date Unknown, PCP - General 12/18/22
== END 2024-07-22 10:19 | disposition home or self-care (01) ==
LOC: HO.HOS 09:45
PROVIDERS: PCP Pediatrics; Visit Provider Physician Assistant
DX: M25.512 Pain in left shoulder (principal); M75.102 Unspecified rotator cuff tear or rupture of left shoulder, not specified as traumatic
CPT/HCPCS: 99213

== ENCOUNTER → 2024-07-22 09:45 | Outpatient (BNVA) | payer OTHER, SELFPAY | PROVIDERS: PCP Pediatrics; Visit Provider Physician Assistant | DX: M75.102 Unspecified rotator cuff tear or rupture of left shoulder, not specified as traumatic (principal); M25.512 Pain in left shoulder; Z98.890 Other specified postprocedural states | CPT/HCPCS: 99212 ==

== ENCOUNTER 2024-08-17 08:38 | Outpatient (AMB) | payer MEDICARE, SELFPAY ==
--- NOTE | 2024-08-17 08:42 | MHC.OFFVIS ---
Vital Signs 08/17/24 08:43 Height 5 ft 8 in Weight 255 lb BMI 38.8 Intake Visit Reasons: OV Lt RTC Repair 04/22/24 NE Intake Note: Rita is a 63 year old right hand dominant female who presents today for a post operative appointment about 4 months s/p Left RTC Repair 04/22/24. Patient rpeorts that she is doing , She continues to struggle with ROM. Particularly above shoulder height motions. She continues to work with physical therapy. Occasional numbness and tingling. She has some mild pain, she takes Tylenol and utilizes heat application when her pain increases Allergies No Known Allergies Allergy (Verified 08/17/24 08:42) HPI HPI OV Lt RTC Repair 04/22/24 NE: Details: Rita is a 63 year old right hand dominant female who presents today for a post operative appointment about 4 months s/p Left RTC Repair 04/22/24. Large repair protocol. Patient reports that she is doing , She continues to struggle with ROM. Particularly above shoulder height motions. She continues to work with physical therapy. Occasional numbness and tingling. She has some mild pain, she takes Tylenol and utilizes heat application when her pain increases. [facility] Medical History Left shoulder pain Osteoarthritis HTN (hypertension) PONV (postoperative nausea and vomiting) Surgical History History of Hx of tubal ligation (~1981) History of loop electrosurgical excision procedure (LEEP) (08/01/23) Hx of colonoscopy S/P right knee arthroscopy History of cholecystectomy (~1982) Hx of laparoscopic gastric banding (2006) History of left knee replacement (01/15/23) History of repair of right rotator cuff (~2021) Social History Are you a primary manager respiratory care to a significant other at home: Yes (Brother-other family members assist) Do you presently have visiting nurse or other home services: No Patient Tobacco Use Status: Never used Tobacco Current occupational status: employed 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 Patient is doing well. Continue physical therapy and follow up in 6-8 weeks. Coding Level of Care Code Est Pt Level 3 (88900) Diagnoses Status post rotator cuff repair Z98.890
[2024-08-17 08:43] VITALS: BMI 38.8
--- OUTSIDE RECORDS SUMMARY | 2024-08-17 09:14 | XMS_ITS | Data Portability ---
Author Organization [place] [facility] [place] Address [address] [place] [address] Assessment Encounter Date Assessment Date Assessment LastModified [...] will put her in touch with the director medical surgical so we can start thinking about things. [...] rotator cuff protective measures. She can take kbkb-mos-qejzzpi pain medication for symptomatic relief. She agrees [...] shortly after her MRI. She can take ggvb-rtp-acetwwk pain medication and topical treatments for symptomatic [...] follow-up for a LEFT total knee replacement.? she is recovering well. She has minimal to no pain. She has good function. She is walking well. She is very happy with her progress. She is still working strengthening. Overall, patient reports good pain relief in the knee and satisfactory bahai of function in terms of activities of [...] total knee arthroplasty. Continue knee conditioning exercises. Mymc-lgc-ciamele medications as needed. Ultimate failure may occur due to mechanical wear, loosening or breakage. Follow-up is recommended to assess for the possibility of failure. Plan for follow-up at 1 year from surgery with repeat x-rays of the left knee at that time. Not available 04/26/2023 09:55:44 01/30/2024 01/30/2024 HPI : Patient is here for 1 year follow-up for a left total knee replacement.?Patient reports good pain relief in the knee and satisfactory bahai of function in terms of activities of [...] after knee arthroplasty. Continue knee conditioning exercises. Mgoq-qkg-sfvwkrk medications as needed. The patient understands that [...] 3 view 2023 024 [email or web address] [facility], [address], [place], [address], 4 09:50:31 XR, knee, 3 view 2022 023 [facility], [address], [place], [address], 3 11:55:21 Medication Orders None recorded. Patient TargetsNo targets recorded. Patient Instructions Encounter Date Encounter Id Patient Instructions Last Modified By Organization Details Last Modified Time 01/28/2023 [id number] physical therapy * - Diagnosis: s/p L TKA Evaluate and treat as indicated to reduce pain and to improve mobility, range of motion, and function. Please teach a home exercise plan and incorporate PT into patient's exercise routine. 2-3 sessions weekly for 6 weeks. [email or web address] Not available 02/04/2023 08:25:56 04/26/2023 [id number] AP, lateral, and patellar radiographs of the left knee taken today demonstrate satisfactory position and alignment of components following left total knee replacement. Not available 04/26/2023 09:55:52 Reason for Referral None Reported. Problems Name Problem SNOMED Code Status Onset Date Resolution Date Notes Provider Name and Address Organization Details Recorded Time Arthritis of knee 457494598 Active 2022 Federico Crocker MD [address], [place], [address], [place] [facility] 3 11:51:10 Pain of left shoulder joint 1070918378346 9109 Active 2022 Tasneem Presley null, [place] [facility] 3 15:26:18 Rupture of rotator cuff of left shoulder 8601453974680 9102 Active 2022 CINDI YOUSSEF PA-C [address], [place], [address], [place] [facility], [facility] 3 15:43:46 Rupture of tendon of biceps 358985314 Active 2022 CINDI OYUSSEF PA-C [address], [place], [address], [place] [facility], [facility] 3 06:53:56 Full thickness rotator cuff tear 936320068 Active 2022 CINDI YOUSSEF PA-C [address], [place], [address], [place] [facility], [facility] 3 06:54:15 History of left total knee replacement 4532560716369 105 Active 2022 CINDI JANE PA-C [address], [place], [address], [place] [facility], [facility] 3 11:29:51 Osteoarthri tis of left knee joint 3334771841654 09 Active 2022 CINDI YOUSSEF PA-C [address], [place], [address], [place] [facility] 3 08:34:00 Instability of joint of left knee 7958077423241 106 Active 2022 CINDI YOUSSEF PA-C [address] [facility],[address], [place], [address], [place] [facility] 3 08:34:10 Problem Notes None recorded. Procedures Surgical History Date Name Laterality Status Provider Name and Address Organization Details Recorded Time 10/10/2022 Knee Joint/Burs a Asp & Inj completed CINDI YOUSSEF PA-C [address] [facility],[address], [place], [address], [place] [facility] 10/12/2022 08:32:56 Imaging Results None recorded. [...] Updated DateTime 04/26/2023 177.8 cm Marimar Stanton [place] [facility] 04/26/2023 09:14:13 Date Recorded Body height Body mass index (BMI) Body weight Provider Name and Address Organization Details Last Updated DateTime 01/30/2024 177.8 cm 35.7 kg/m2 811527.5 g Coretta García [place] [facility] 01/30/2024 09:12:51 Date Recorded Body height Provider Name an d Address Organization Details Last Updated DateTime 01/21/2023 177.8 cm Yanique Jackson [place] [facility] 01/21/2023 12:52:51 Date Recorded Body height Body mass index (BMI) Body weight Provider Name and Address Organization Details Last Updated DateTime 01/28/2023 177.8 cm 38.3 kg/m2 594542.16 g Quan Marks [facility] 01/28/2023 11:20:36 Date Recorded Body height Body mass index (BMI) Body weight Provider Name and Address Organization Details Last Updated DateTime 03/01/2023 177.8 cm 38.3 kg/m2 042034.16 curt Quan Marks [place] [facility] 03/01/2023 13:30:27 Social History Question Answer Notes LastModified by Organizat ion Details LastModified Time Tobacco Smoking Status Never Smoker Yanique Renetta null, [place] [facility] 10/10/2022 15:16:33 What Is Your Level Of Alcohol Consumption? None Information not available 10/10/2022 Do You Use Any Illicit Or Recreational Drugs? No [email or web address] Information not available 10/10/2022 Do You Or Have You Ever Used Any Other Forms Of Tobacco Or Nicotine? No [email or web address] Information not available 10/10/2022 Sex: Unknown Functional Status None recorded. Mental Status None recorded. Family History Relationship Description Onset Age of this Age Resolved Age Notes LastModified by Organization Details LastModified Time Father Family history of malignant neoplasm [email or web address] Not available 2022 15:16:56 Father Diabetes mellitus [email or web address] Not available 2022 15:17:05 Father History of hypertension [email or web address] Not available 15:17:26 Mother Family history of malignant neoplasm [email or web address] Not available 2022 15:16:56 Mother History of hypertension [email or web address] Not available 15:17:26 Medical History Condition Response Hypertension Y Gynecological HistoryNo gynecological history recorded. Obstetrics History GPAL:G 0 P 0 0 0 0 Past Encounters Encounter ID Performer Location Encounter Start Date Encounter Closed Date Diagnosis/Indication Diagnosis SNOMED-CT Code Diagnosis ICD10 Code Diagnosis Note [id number] MD CHRISS Altamirano [address] [address] 10/10/2022 14:34:51 10/10/2022 15:56:08 Osteoarthritis of left knee joint 5426269868 35563 M17.12 Instabilit y of joint of left knee 8953979019 223774 M25.362 [id number] MD CHRISS Altamirano [address] [address] 11/30/2022 10:57:24 11/30/2022 12:04:05 Pain of left knee joint 1278481400 68286 M25.562 Osteoarthr itis of left knee joint 4725683847 68661 M17.12 Arthritis of knee 120297 002 M13.869 [id number] MD CHRISS Altamirano [address] [place] [address] 12/06/2022 15:04:33 12/06/2022 15:49:35 Pain of left shoulder joint 9680527486 4011602 M25.512 Rupture of rotator cuff of left shoulder 6778794065 9709736 M75.102 [id number] MD CHRISS Bassettdenisa [place] [address] [place] [address] 12/20/2022 14:59:56 12/20/2022 15:29:52 Full thickness rotator cuff tear 533104558 M75.122 Rupture of tendon of biceps 271376559 M66.829 [id number] MD CHRISS Bassett Luis [address] [place] [address] 01/21/2023 12:47:22 01/21/2023 13:08:50 Full thickness rotator cuff tear 051422500 M75.122 Rupture of tendon of biceps 855235711 M66.829 [id number] MD CHRISS Altamiranonatashadenisa [address] [place] [address] 01/28/2023 11:01:32 01/28/2023 11:30:49 History of left total knee replacement 5034867893 872719 Z96.652 [id number] MD CHRISS Altamirano [address] [place] [address] 03/01/2023 13:18:20 03/01/2023 13:53:25 History of left total knee replacement 4715781456 350577 Z96.652 Aftercare 124839375 Z47. 1 [id number] MD CHRISS Altamiranodenisa [address] [place] [address] 04/26/2023 08:55:11 04/26/2023 10:00:56 History of left total knee replacement 6399918655 007501 Z96.652 Aftercare 883889551 Z47. 1 [id number] MD CHRISS Altamirano [address] [place] [address] 01/30/2024 09:00:44 01/30/2024 09:36:01 History of left total knee replacement 2717587476 705936 Z96.652 Health Concerns Section Related Observation LastModified by Organization Detai ls LastModified Time None Recorded Concern Status LastModified by Organization Details LastModified Time None Recorded Advance Directives Directive None Recorded Payers Encounter Date Sequence Insurance Name Policy Number Policy Rosario Covered Member ID Rosario Member ID Guarantor Name 01/21/2023 1 [employer] - CHOICE (POS II) [id number] Rita Pineda [id number] Rita Pineda 01/28/2023 1 [employer] - CHOICE (POS II) [id number] Rita Pineda [id number] Rita Pineda 03/01/2023 1 [employer] - CHOICE (POS II) [id number] Rita Pineda [id number] Rita Pineda 04/26/2023 1 [employer] - CHOICE (POS II) [id number] Rita Pineda [id number] Rita Pineda 01/30/2024 1 [facility] TYPE I (HMO) [id number] Rita Pineda [id number] Rita Pineda Notes Date Note Type [...] arthritis . Non-smoker. 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 PRIOR BK:62-year-old female here for follow-up on her MRI results of her left shoulder pain. No interval change since her visit on 12/06/2022 ongoing weakness and discomfort.States however her range of motion has improved somewhat. Owen Casillas MD [address] [place] [address], [place], [address], [place] [facility] 01/22/2023 08:37:07 OBGyn Episode No OBEpisode recorded.
--- OUTSIDE RECORDS SUMMARY | 2024-08-17 09:14 | XMS_ITS | Clinical Summary ---
Author Organization [facility] Address [address] [place] [address] Care Team Providers Care Service Girl Name Role Phone Unknown, Primary Care Provider [...] 07/05/2020, 06/07/2020 Influenza Vaccine (#1) 2024 02/01/2016 Fall Risk Assessment 08/10/2024 Osteoporosis Screening (DEXA Scan) 08/10/2024 Pneumococcal Vaccine (1 of 1 - PCV) [...] age to complete this topic Care Teams Service Girl Relationship Specialty Start Date End Date Unknown, PCP - General 12/18/22
== END 2024-08-17 09:04 | disposition home or self-care (01) ==
LOC: HO.HOS 08:39
PROVIDERS: PCP Pediatrics; Visit Provider Orthopaedic Surgery
DX: S46.012D Strain of muscle(s) and tendon(s) of the rotator cuff of left shoulder, subsequent encounter (principal)
CPT/HCPCS: 99213

== ENCOUNTER → 2024-08-17 08:38 | Outpatient (BNVA) | payer MEDICARE, SELFPAY | PROVIDERS: PCP Pediatrics; Visit Provider Orthopaedic Surgery | DX: Z98.890 Other specified postprocedural states (principal) | CPT/HCPCS: 99212 ==

== ENCOUNTER 2024-09-30 09:01 | Outpatient (RCR) | payer MEDICARE, OTHER, SELFPAY ==
--- NOTE | 2024-05-07 11:40 | MHC.PT.EP ---
[facility] [place] [facility] [place] [facility] [address] Perla Mcintyre [address] [phone] F: [phone] F: [phone] F: [phone] F: [phone] Physical Therapy Plan of Care Date of Evaluation: 05/07/24 Date of Surgery: 04/22/24 Diagnosis: RTC REPAIR BY NE (INFRA/SUPRA W/ PATCH) KP Assessment: JURGEN IS A 64 YO FEMALE WHO PRESENTS POD 15 FOR EVALUATION. UPON EXAM SHE DEMONSTRATES THE EXPECTED IMPAIRMENTS OF DECREASED ROM, DECREASED STRENGTH, ALTERED POSTURE AND POSITIONING, INCREASED UPPER TRAP GUARDING, AND INCREASED PAIN AND EDEMA. FUNCTIONAL LIMITATIONS INCLUDE DECREASED ABILITY TO PERFORM HOMEMAKING AND SELF-CARE TASKS, DECREASED ABILITY TO PERFORM PUSHING, PULLING, LIFTING AND REACHING. INABILITY TO DRIVE AND PERFORM WORK TASKS, DECREASED PARTICIPATION IN COMMUNITY AND RECREATIONAL ACTIVITIES AND DISRUPTED SLEEP. THE Pt IS A GOOD CANDIDATE FOR SKILLED PT DUE TO AGE, POTENTIAL REMEDIATION OF IMPAIRMENTS, TYPICAL DISEASE/CONDITION PROGRESSION AND PROGNOSIS, COMORBIDITIES, AND MOTIVATION. PT WOULD BENEFIT FROM TAILORED PROGRAM OF THERAPEUTIC ACTIVITIES, FUNCTIONAL TRAINING, POSTURAL EDUCATION, NEUROMUSCULAR RE-EDUCATION, AND MODALITIES NEEDED. Frequency and Duration: The patient will be seen 2 X WEEK FOR 12 WEEKS Short Term Goals: INITIATE HEP AND PROMOTE SELF MANAGEMENT OF SYMPTOMS Assisted Goals: FULL, PAIN FREE ROM FULL UE STRENGTH, PAIN FREE TO PERFORM COMPUTER AND WORK TASKS WITHOUT RESTRICTION AND PAIN NO GREATER THAN 2/[address] OBJECT AT MINIMUM OF 5# INTO CABINET AT SHOULDER HEIGHT Treatment Plan: Modalities to reduce pain, spasms and effusion. Manual therapy to restore motion and function. Therapeutic exercise to improve strength and flexibility. Neuromuscular re-education for posture and balance. Therapeutic activities to return to functional activities of daily living. Electronically signed by: RENNY GOMEZ PT DPT Please sign and return to therapist. Thank you for your referral.
== END 2024-11-19 13:10 | disposition home or self-care (01) ==
LOC: HO.PT 09:01
PROVIDERS: PCP Pediatrics; Visit Provider Physician Assistant
DX: M75.102 Unspecified rotator cuff tear or rupture of left shoulder, not specified as traumatic (principal); Z98.890 Other specified postprocedural states
CPT/HCPCS: 97110; 97140; 97161; 97535

== ENCOUNTER 2024-10-22 08:22 | Outpatient (AMB) | payer MEDICARE, SELFPAY ==
--- NOTE | 2024-10-22 08:30 | A.OFFVIS_ITS ---
Intake Visit Reasons: OV- Lt RTC Repair 04/22/24 NE Intake Note: Rita is a 63 year old right hand dominant female who presents today for a post operative appointment about 6 months s/p Left RTC Repair 04/22/24. She was instructed to continue physical therapy. Patient reports that she is having continued weakness and limited ROM of the left shoulder. She is unable to lift the arm. Has mild pain when trying to lift the arm. Has completed physical therapy with no releif or improvement Allergies No Known Allergies Allergy (Verified 10/22/24 08:30) HPI HPI OV- Lt RTC Repair 04/22/24 NE: Details: Rita is a 63 year old right hand dominant female who presents today for a post operative appointment about 6 months s/p Left RTC Repair 04/22/24. She was instructed to continue physical therapy. Patient reports that she is having continued weakness and limited ROM of the left shoulder. She is unable to lift the arm. Has mild pain when trying to lift the arm. Has completed physical therapy and is doing home exercises. Intraoperatively she had a partially unrepairable supraspinatus. [facility] Medical History Left shoulder pain Osteoarthritis HTN (hypertension) PONV (postoperative nausea and vomiting) Surgical History History of Hx of tubal ligation (~1981) History of loop electrosurgical excision procedure (LEEP) (08/01/23) Hx of colonoscopy S/P right knee arthroscopy History of cholecystectomy (~1982) Hx of laparoscopic gastric banding (2006) History of left knee replacement (01/15/23) History of repair of right rotator cuff (~2021) Social History Are you a primary pet care worker to a significant other at home: Yes (Brother-other family members assist) Do you presently have visiting nurse or other home services: No Patient Tobacco Use Status: Never used Tobacco Current occupational status: employed 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 Forward flexion to 60 degrees. Portals are clean dry and intact. Partial winging of the left scapula Assessment & Plan Assessment & Plan (1) Status post rotator cuff repair: Code(s): Z98.890 - Other specified postprocedural states Category: Medical Plan: Status post large rotator cuff repair. She is doing okay with limited abduction but she is improving. I reviewed the extent of her tear and options moving forward. At this point I recommend continuing to work on scapular stabilization and follow up in 3 months. Coding Level of Care Code Est Pt Level 3 (35042) Diagnoses Status post rotator cuff repair Z98.890
--- OUTSIDE RECORDS SUMMARY | 2024-10-22 08:30 | XMS_ITS | Clinical Summary ---
Author Organization [facility] Address [address] [place] [address] Care Team Providers Care Wheel And Pinion Inspector Name Role Phone Unknown, Md Primary Care Provider Unavailabl e Allergies No [...] - 2023-2 5 season) 2024 07/05/2020, 06/07/2020 Fall Risk Assessment 08/10/2024 Osteoporosis Screening (DEXA Scan) 08/10/2024 Pneumococcal Vaccine (1 of 1 - PCV) 08/10/2024 Influenza Vaccine (Season Ended) 2025 02/01/2016 RSV Adult > 60+ Yrs or (1 [...] age to complete this topic Care Teams Wheel And Pinion Inspector Relationship Specialty Start Date End Date Unknown, PCP - General 12/18/22
== END 2024-10-22 09:17 | disposition home or self-care (01) ==
LOC: HO.HOS 08:22
PROVIDERS: PCP Pediatrics; Visit Provider Orthopaedic Surgery
DX: Z47.89 Encounter for other orthopedic aftercare (principal); M75.122 Complete rotator cuff tear or rupture of left shoulder, not specified as traumatic
CPT/HCPCS: 99213

== ENCOUNTER → 2024-10-22 08:22 | Outpatient (BNVA) | payer MEDICARE, SELFPAY | PROVIDERS: PCP Pediatrics; Visit Provider Orthopaedic Surgery | DX: R53.1 Weakness (principal); M79.602 Pain in left arm; Z98.890 Other specified postprocedural states | CPT/HCPCS: 99212 ==

== ENCOUNTER 2024-12-02 07:51 | Outpatient (REF) | payer MEDICARE, SELFPAY ==
--- OUTSIDE RECORDS SUMMARY | 2024-12-02 07:54 | XMS_ITS | Clinical Summary ---
Author Organization [facility] Address [address] [address] Phone Care Team Providers Care Aws Architect Name Role Phone Pcp, Not Required Primary Care Provider Unavaila ble Immunizations Immunization Administration Dates Next Due COVID-19 (Pre-03/04) Moderna Vaccine, mRNA, PF 0 07/05/2020,06/07/2020 Social History Tobacco Use Types Packs/Day Years Used Date Smoking Tobacco: Never Assessed Education Answer Date Recorded Are you interested in more education? Not on smita e 09/07/2022 Are you concerned about learning? Not on file 09/07/2022 No 09/07/2022 No 09/07/2022 Digital Access Answer Date Recorded No 10/06/2022 No 10/06/2022 No 10/06/2022 Reliable internet access at home? Not on file 10/06/2022 Device with a working camera? Not on file Comments Unknown Sex and Gender Information Value Date Recorded Sex Assigned at Female 06/07/2020 1:10 PM EST Legal Sex Female 1:05 PM EST Gender Identity Female 06/07/2020 1:10 PM EST Sexual Orientation Not on file Plan of Treatment Health Maintenance Due Date Last Done Comments Adult Td,Tdap Booster 1959 LIPID PANEL 1959 DEPRESSION SCREENING 1971 SMOKING Hx and SMOKELESS TOBACCO SCREENING 08/10/1972 HEPATITIS C SCREENING 08/10/1977 HIV ONE-TIME SCREENING (18-6 5 YEARS) 08/10/1977 MAMMOGRAM 1999 COLOGUARD 08/10/2004 COLONOSCOPY 08/10/2004 COLORECTAL CANCER SCREENING 08/10/2004 FIT TEST 08/10/2004 FOBT 08/10/2004 SIGMOIDOSCOPY 08/10/2004 VIRTUAL COLONOSCOPY 08/10/2004 PNEUMOCOCCAL VACCINES (50+ years) (1 of 1 - PCV) 08/10/2009 ZOSTER VACCINES (1 of 2) 08/10/2009 COVID-19 VACCINE (3 - 2023-2 5 season) 2024 07/05/2020, 06/07/2020 OSTEOPOROSIS SCREENING INITI AL (ONE-TIME) 08/10/2024 RSV VACCINE (1 - 1-dose 75+ series) 08/10/2034 HEPATITIS A VACCINES Aged Out No long er eligible based on patient's age to complete this topic HIB VACCINES Aged Out No longer eligi ble based on patient's age to complete this topic MENINGOCOCCAL VACCINES (ACWY) Aged Out No longer eligible based on patient's age to complete this topic MENINGOCOCCAL VACCINES (B) Aged Out N o longer eligible based on patient's age to complete this topic Medical Devices Not on file Insurance [facility] [place] [address] [place], [place] [address]O [place] [address] [place] [address] [facility] E[facility] POS EPO [employer] HMO POS EPO Care Teams Aws Architect Relationship Specialty Start Date End Date Pcp, Not Required [address] [place] [id number] PCP - General 06/07/20 Additional Source Comments The information contained in this document represents components of the legal health record. It is not the complete legal health record.[facility]
--- OUTSIDE RECORDS SUMMARY | 2024-12-02 07:54 | XMS_ITS | Clinical Summary ---
Author Organization [facility] [place] Address [address] [place] [address] Care Team Providers Care Photography And Prints Curator Name Role Phone Unknown, Primary Care Provider [...] 59 01/04/2023 1:40 PM EDT Temperature 35.9 C (96.6 F) 01/04/2023 1:40 PM EDT Respiratory Rate 16 01/04/2023 1:40 PM EDT [...] of 1 - PCV) 08/10/2024 Influenza Vaccine (#1) 2025 02/01/2016 RSV Adult > 60+ Yrs [...] age to complete this topic Care Teams Photography And Prints Curator Relationship Specialty Start Date End Date Unknown, PCP - General 12/18/22
--- OUTSIDE RECORDS SUMMARY | 2024-12-02 07:54 | XMS_ITS | Data Portability ---
Author Organization [place] [facility] Yoshi Bain AONE Hawkins Address [address] [place] [address] Assessment Encounter Date Assessment Date Assessment LastModified by Organization Details LastModified Time 01/21/2023 01/21/2023 62-year-old femmeagan le with what sounds like an acute [...] will put her in touch with the tube laser operator so we can start thinking about things. [...] rotator cuff protective measures. She can take tzkm-ydx-bhppkwo pain medication for symptomatic relief. She agrees [...] shortly after her MRI. She can take fsxb-qif-colikkk pain medication and topical treatments for symptomatic [...] month(s) follow-up for a LEFT total knee replacement. she is recovering well. She has minimal to no pain. She has good function. She is walking well. She is very happy with her progress. She is still working strengthening. Overall, patient reports good pain relief in the knee and satisfactory episcopal of function in terms of activities of [...] total knee arthroplasty. Continue knee conditioning exercises. Emtl-nsj-agaojoc medications as needed. Ultimate failure may occur due to mechanical wear, loosening or breakage. Follow-up is recommended to assess for the possibility of failure. Plan for follow-up at 1 year from surgery with repeat x-rays of the left knee at that time. Not available 04/26/2023 09:55:44 01/30/2024 01/30/2024 HPI : Patient is here for 1 year follow-up for a left total knee replacement. Patient reports good pain relief in the knee and satisfactory episcopal of function in terms of activities of [...] after knee arthroplasty. Continue knee conditioning exercises. Pcjw-yic-ldfjfaj medications as needed. The patient understands that [...] seen and evaluated by Cindi Jane MS, PASpikeC in indirect conjunction with documenting/superv ising provider [...] 3 view 2023 024 [email or web address] [facility], [address], [place], [address], 4 09:50:31 XR, knee, 3 view 2022 023 [facility], [address], [place], [address], 3 11:55:21 Medication Orders None recorded. Patient TargetsNo targets recorded. Patient Instructions Encounter Date Encounter Id Patient Instructions Last Modified By Organization Details Last Modified Time 01/28/2023 [id number] physical therapy * - Diagnosis: s/p L TKA Evaluate and treat as indicated to reduce pain and to improve mobility, range of motion, and function. Please teach a home exercise plan and incorporate PT into patient's exercise routine. 2-3 sessions weekly for 6 weeks. [email or web address] Not available 02/04/2023 08:25:56 04/26/2023 [id number] AP, lateral, and patellar radiographs of the left knee taken today demonstrate satisfactory position and alignment of components following left total knee replacement. Not available 04/26/2023 09:55:52 Reason for Referral None Reported. Problems Name Problem SNOMED Code Status Onset Date Resolution Date Notes Provider Name and Address Organization Details Recorded Time Osteoarthri tis of left knee joint 8436650881452 09 Active 2022 CINDI YOUSSEF PA-C [address], [place], [address], [place] [facility] 3 08:34:00 Instability of joint of left knee 6784331258702 106 Active 2022 CINDI YOUSSEF PA-C [address], [place], [address], [place] [facility] 3 08:34:10 Arthritis of knee 133913632 Active 2022 Federico Crocker MD [address], [place], [address], [place] [facility] 3 11:51:10 Pain of left shoulder joint 9742297167458 9109 Active 2022 Tasneem Presley [facility], [place] [facility], [facility] 3 15:26:18 Rupture of rotator cuff of left shoulder 9339546050661 9102 Active 2022 CINDI YOUSSEF PA-C [address], [place], [address], [place] [facility] 3 15:43:46 Rupture of tendon of biceps 359580566 Active 2022 CINDI YOUSSEF PA-C [address], [place], [address], [place] [facility] 3 06:53:56 Full thickness rotator cuff tear 715080567 Active 2022 CINDI YOUSSEF PA-C [address], [place], [address], [place] [facility] 3 06:54:15 History of left total knee replacement 7804276784079 105 Active 2022 CINDI JANE PA-C [address] [facility],[address], [place], [address], [place] [facility] 3 11:29:51 Problem Notes None recorded. Procedures Surgical History Date Name Laterality Status Provider Name and Address Organization Details Recorded Time 10/10/2022 Knee Joint/Burs a Asp & Inj completed CINDI YOUSSEF PA-C [address] [facility],[address], [place], [address], [place] [facility] 10/12/2022 08:32:56 Imaging Results None recorded. [...] pantoprazol e 40 mg tablet,osmin yed release Take 1 tablet every day by oral route for 28 days. 04/26 completed Not Available Not Available Not Available scopolamine 1 mg over 3 days transdermal patch PLEASE SEE ATTACHED FOR DETAILED DIRECTION S active Not Available Not Available No t Available Enteric Coated Aspirin 81 mg tablet,osmin yed release Take 1 tablet twice a day by oral route for 28 days. 04/26 completed Not Available Not Available Not Available Tylenol Extra Strength 500 mg tablet [...] Updated DateTime 01/21/2023 177.8 cm Yanique Jackson [place] [facility] 01/21/2023 12:52:51 Date Recorded Body height Body mass index (BMI) Body weight Provider Name and Address Organization Details Last Updated DateTime 01/28/2023 177.8 cm 38.3 kg/m2 083930.16 curt Quan Marks [facility] 01/28/2023 11:20:36 Date Recorded Body height Body mass index (BMI) Body weight Provider Name and Address Organization Details Last Updated DateTime 01/30/2024 177.8 cm 35.7 kg/m2 064303.5 curt Coretta García [place] [facility] 01/30/2024 09:12:51 Date Recorded Body height Body mass index (BMI) Body weight Provider Name and Address Organization Details Last Updated DateTime 03/01/2023 177.8 cm 38.3 kg/m2 535143.16 curt Quan Marks [facility] 03/01/2023 13:30:27 Date Recorded Body height Provider Name an d Address Organization Details Last Updated DateTime 04/26/2023 177.8 cm Marimar Stanton [place] [facility] 04/26/2023 09:14:13 Social History None recorded. Functional Status Question Answer Note LastModified by Organizat ion Details LastModified Time Do you use any illicit or recreational drugs? No [email or web address] Information not available 10/10/2022 Do you or have you ever used any other forms of tobacco or nicotine? No [email or web address] Information not available 10/10/2022 What is your level of alcohol consumption? None [email or web address] Information not available 10/10/2022 Mental Status None recorded. Family History Relationship Description Onset Age of this Age Resolved Age Notes LastModified by Organization Details LastModified Time Father Family history of malignant neoplasm [email or web address] Not available 2022 15:16:56 Father Diabetes mellitus [email or web address] Not available 2022 15:17:05 Father History of hypertension [email or web address] Not available 15:17:26 Mother Family history of malignant neoplasm Not available 2022 15:16:56 Mother History of hypertension [email or web address] Not available 15:17:26 Medical History Condition Response Hypertension Y Gynecological HistoryNo gynecological history recorded. Obstetrics History GPAL:G 0 P 0 0 0 0 Past Encounters Encounter ID Performer Location Encounter Start Date Encounter Closed Date Diagnosis/Indication Diagnosis SNOMED-CT Code Diagnosis ICD10 Code Diagnosis Note [id number] PITA MCCLAIN [address] [address] 10/10/2022 14:34:51 10/10/2022 15:56:08 Osteoarthritis of left knee joint 5371918685 85863 M17.12 Instabilit y of joint of left knee 6316601976 626981 M25.362 [id number] MD CHRISS Altamirano Lecturiodenisa [address] [facility] [address] [place] [address] 11/30/2022 10:57:24 11/30/2022 12:04:05 Pain of left knee joint 8170655996 03162 M25.562 Osteoarthr itis of left knee joint 8783169967 39354 M17.12 Arthritis of knee 313815 002 M13.869 [id number] PITA MCCLAIN 299 [facility] [address] [place] [address] 12/06/2022 15:04:33 12/06/2022 15:49:35 Pain of left shoulder joint 0853242888 6057432 M25.512 Rupture of rotator cuff of left shoulder 4036321167 0831877 M75.102 [id number] PITA MCCLAIN Larye 299 [facility] [address] [place] [address] 12/20/2022 14:59:56 12/20/2022 15:29:52 Full thickness rotator cuff tear 851986238 M75.122 Rupture of tendon of biceps 832218603 M66.829 [id number] MD CHRISS Bassett [place] [address] [place] [address] 01/21/2023 12:47:22 01/21/2023 13:08:50 Full thickness rotator cuff tear 404077530 M75.122 Rupture of tendon of biceps 188563755 M66.829 [id number] PITA MONCADA Freyae [address] [place] [address] 01/28/2023 11:01:32 01/28/2023 11:30:49 History of left total knee replacement 1432953170 240029 Z96.652 [id number] MD CHRISS Altamirano Luis [address] [place] [address] 03/01/2023 13:18:20 03/01/2023 13:53:25 History of left total knee replacement 4103890334 879481 Z96.652 Aftercare 333720648 Z47. 1 [id number] MD CHRISS Altamirano Larye [address] [place] [address] 04/26/2023 08:55:11 04/26/2023 10:00:56 History of left total knee replacement 3641495496 261644 Z96.652 Aftercare 380682541 Z47. 1 [id number] PITA MONCADA [place] [address] [place] [address] 01/30/2024 09:00:44 01/30/2024 09:36:01 History of left total knee replacement 9469243012 589395 Z96.652 Health Concerns Section Related Observation LastModified by Organization Hussain ls LastModified Time None Recorded Concern Status LastModified by Organization Details LastModified Time None Recorded Advance Directives Directive None Recorded Payers Insurance Date Sequence Insurance Name Policy Number Policy Rosario Covered Member ID Rosario Member ID Guarantor Name 01/30/2024 1 [employer] [facility] TYPE I (HMO) [id number] Rita Pineda [id number] Rita Pineda 01/30/2024 1 [employer] (POS II) [id number] Rita Pineda [id number] Rita Pinead Notes Date Note Type Note Provider Name [...] arthritis . Non-smoker. 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 PRIOR BK:62-year-old female here for follow-up on her MRI results of her left shoulder pain. No interval change since her visit on 12/06/2022 ongoing weakness and discomfort.States however her range of motion has improved somewhat. Owen Casillas MD [address] [place] [address], [place], [address], [place] [facility] 01/22/2023 08:37:07 OBGyn Episode No OBEpisode recorded.
== END 2024-12-02 07:52 | disposition home or self-care (01) ==
LOC: HO.MAMMO 07:51
PROVIDERS: PCP Pediatrics; Visit Provider Pediatrics
DX: Z12.31 Encounter for screening mammogram for malignant neoplasm of breast (principal)
CPT/HCPCS: 77063; 77067

== ENCOUNTER → 2024-12-02 08:00 | Outpatient (BNV) | payer MEDICARE, SELFPAY | PROVIDERS: PCP Pediatrics; Visit Provider Radiology Body Imaging | DX: Z12.31 Encounter for screening mammogram for malignant neoplasm of breast (principal) | CPT/HCPCS: 77063; 77067 ==

== ENCOUNTER 2025-01-21 08:44 | Outpatient (AMB) | payer OTHER, SELFPAY ==
--- NOTE | 2025-01-21 08:47 | MHC.OFFVIS ---
Vital Signs 01/21/25 08:49 Height 5 ft 8 in Weight 255 lb BMI 38.8 Intake Visit Reasons: OV- Lt RTC Repair 04/22/24 NE Intake Note: Rita is a 64 year old right hand dominant female who presents today about 9 months s/p Left Large RTC Repair 04/22/24. At her last visit it was noted that she has continued but improving limited abduction ROM. Discharged from physical therapy as of 11/19/24. Patient reports that she is struggling with above shoulder height activities. About a month ago she went to had her a letter when she felt a painful pop in the left shoulder. She is unsure if she re-injured something when this happen. She is unable to sleep on the left side, but this has been a problem since her initial injury prior to surgery. Denies numbness and tingling. Allergies No Known Allergies Allergy (Verified 01/21/25 08:47) HPI HPI OV- Lt RTC Repair 04/22/24 NE: Details: Rita is a 64 year old right hand dominant female who presents today about 9 months s/p Left Large RTC Repair 04/22/24. At her last visit it was noted that she has continued but improving limited abduction ROM. Discharged from physical therapy as of 11/19/24. Patient reports that she is struggling with above shoulder height activities. About a month ago she went to had her a letter when she felt a painful pop in the left shoulder. She is unsure if she re-injured something when this happen. She is unable to sleep on the left side, but this has been a problem since her initial injury prior to surgery. Denies numbness and tingling. [facility] Medical History Left shoulder pain Osteoarthritis HTN (hypertension) PONV (postoperative nausea and vomiting) Surgical History History of Hx of tubal ligation (~1981) History of loop electrosurgical excision procedure (LEEP) (08/01/23) Hx of colonoscopy S/P right knee arthroscopy History of cholecystectomy (~1982) Hx of laparoscopic gastric banding (2006) History of left knee replacement (01/15/23) History of repair of right rotator cuff (~2021) Social History Are you a primary emergency care attendant to a significant other at home: Yes (Brother-other family members assist) Do you presently have visiting nurse or other home services: No Patient Tobacco Use Status: Never used Tobacco Current occupational status: employed 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 She has been compliant with therapy but her passive motion is much better but her active motion is poor. She is very weak in abduction and limited to approximately 40-50 degrees of isolated abduction. I suspect that her rotator cuff is dysfunctional. Given the severity of the initial tear this is not a surprise. I would like to see her back in 3 months and at that point we can make a better assessment as to her long-term recovery. She understands that she may not improve significantly. She does not have pain however. Coding Level of Care Code Est Pt Level 3 (50872) Diagnoses Rotator cuff tear, left M75.102
[2025-01-21 08:49] VITALS: BMI 38.8
--- OUTSIDE RECORDS SUMMARY | 2025-01-21 09:48 | XMS_ITS | Encounter Summary ---
Author Organization [facility] Address [address] [place] [phone] Phone Care Team Providers Care Project Lead Name Role Phone Pcp, Not Required Primary Care Provider Unavaila ble Encounter Details Date Type Department Care Team (Late st Contact Info) Description 10/11/2020 Procedure Pass [facility] Admitting Dept Virtual Department [address] [place] [address] Social History Tobacco Use Types Packs/Day Years Used Date Smoking Tobacco: Never Assessed Comments Unknown Sex and Gender Information Value Date Recorded Sex Assigned at Female 06/07/2020 1:10 PM EST Legal Sex Female 1:05 PM EST Gender Identity Female 06/07/2020 1:10 PM EST Sexual Orientation Not on file documented as of this encounter Plan of Treatment Not on file documented as of this encounter Visit Diagnoses Not on filedocumented in this encounter Care Teams Project Lead Relationship Specialty Start Date End Date Pcp, Not Required [address] [place] [address] PCP - General 06/07/20 documented as of this encounter Additional Source Comments The information contained in this document represents components of the legal health record. It is not the complete legal health record.[facility]
--- OUTSIDE RECORDS SUMMARY | 2025-01-21 09:48 | XMS_ITS | Encounter Summary ---
Author Organization [facility] Address [address] [facility] [address] [place] [address] Phone Care Team Providers Care Garage Door Installer Name Role Phone Pcp, Not Required Primary Care Provider Unavaila ble Encounter Details Date Type Department Care Team (Latest Contact Info) Description 10/07/2020 Transcribe Orders Virtual Department [address] [place] [address] Vivek Strickland MD [address] [place] [address] [email or web address] Pre-procedure lab exam (Primary Dx) Social History Tobacco Use Types Packs/Day Years [...] on file documented as of this encounter Results * COVID-19 PCR Order (10/11/2020 10:25 AM EDT) COVID-19 Comment [id number] [facility] COVID Testing Status Sent to [facility] 10/11/2020 10:2 5 AM EDT 10/11/2020 5:55 PM EDT us Vivek Strickland MD BODY FLUIDS AND STOOLS ORDERABLE S Final Result [facility] [address] [place] [address] documented in this encounter Visit Diagnoses Diagnosis Pre-procedure lab exam- Primary Pre-procedural laboratory examination documented in this encounter Care Teams Garage Door Installer Relationship Specialty Start Date End Date Pcp, Not Required [address] [place] [id number] PCP - General 06/07/20 documented as of this encounter Additional Source Comments The information contained in this document represents components of the legal health record. It is not the complete legal health record.[facility]
--- OUTSIDE RECORDS SUMMARY | 2025-01-21 09:48 | XMS_ITS | Clinical Summary ---
Author Organization [facility] Address [address] [place] [address] Care Team Providers Care Procurement Engineer Name Role Phone Unknown, Md Primary Care [...] Shingrix-Zoster Vaccine (1 o f 2) 08/10/2009 Fall Risk Assessment 08/10/2024 Osteoporosis Screening (DEXA Scan) 08/10/2024 Pneumococcal Vaccine (1 of 1 - PCV) 08/10/2024 COVID-19 Vaccine (3 - 2024-2 6 season) 2025 07/05/2020, 06/07/2020 Influenza Vaccine (#1) 2025 02/01/2016 RSV Adult [...] age to complete this topic Care Teams Procurement Engineer Relationship Specialty Start Date End Date Unknown, PCP - General 12/18/22
--- OUTSIDE RECORDS SUMMARY | 2025-01-21 09:48 | XMS_ITS ---
Author Name [facility] Unknown History of Medication Use Medication Directions Dispensed Refills Start Date End Date [facility] Tylenol Extra Strength 500 mg tablet Take 2 tablets every 8 hours by oral route for 28 days. 01/10/2023 active lidocaine (PF) 10 mg/mL (1 %) injection solution Take 2 mL by injection route. 10/12/2022 3 completed amoxicillin 500 mg capsule TAKE 4 CAPSULES BY MOUTH 1 HOUR BEFORE APPOINTMENT 3 active meloxicam 15 mg tablet TAKE 1 TABLET BY MOUTH EVERY DAY FOR 15 DAYS 3 active metoprolol succinate ER 50 mg tablet,extended release 24 hr TAKE 1 TABLET BY MOUTH EVERY DAY 3 active ondansetron 8 mg disintegrating tablet TAKE 1 TABLET DISSOLVED UNDER THE TONGUE EVERY 8 HOURS NEEDED FOR NAUSEA. 3 completed Senexon-S 8.6 mg-50 mg tablet TAKE 1 TABLET BY MOUTH TWICE A DAY 3 completed Problems Problem Status Onset Date Problem Type Date of Resoluti on Source Full thickness rotator cuff tear active 2022-12-21 ProblemAct [facility] Arthritis of knee active 2022-11-30 ProblemAct [facility] Osteoarthritis of left knee joint active 2022-10-12 ProblemAct [facility] Rupture of rotator cuff of left shoulder active 2022-12-06 ProblemAct [facility] Pain of left shoulder joint active 2022-12-06 ProblemAct [facility] History of left total knee replacement active 2023-01-28 ProblemAct [facility] Rupture of tendon of biceps active 2022-12-21 ProblemAct [facility] Instability of joint of left knee active 2022-10-12 [facility]Act [facility] Encounters Encounter Type Encounter Reason Primary Diagnosis Location Date Ambulatory [facility] 03/22/2024 Ambulatory [facility] 02/16/2024 Ambulatory [facility] 01/30/2024 Ambulatory [facility] 01/30/2024 Ambulatory [facility] 01/30/2024 Ambulatory [facility] 01/30/2024 Ambulatory [facility] 04/26/2023 Ambulatory [facility] 03/28/2023 Ambulatory [facility] 03/12/2023 Ambulatory [facility] 03/01/2023 Ambulatory [facility] 02/28/2023 Ambulatory [facility] 02/05/2023 Ambulatory [facility] 01/28/2023 Ambulatory [facility] 01/25/2023 Ambulatory [facility] 01/21/2023 Ambulatory [facility] 01/19/2023 Ambulatory [facility] 01/08/2023 Ambulatory [facility] 01/01/2023 Ambulatory [facility] 12/20/2022 Ambulatory [facility] 12/03/2022 Ambulatory [facility] 12/03/2022 Ambulatory [facility] 11/30/2022 Ambulatory [facility] 11/27/2022 Ambulatory [facility] 10/23/2022 Ambulatory [facility] 10/10/2022 Ambulatory [facility] 08/13/2022 Care Team Organization Name Specialty Phone Email Start Date End Da te [facility] 04/12/2022 12/30/2023
--- OUTSIDE RECORDS SUMMARY | 2025-01-21 09:48 | XMS_ITS | Clinical Summary ---
Author Organization [facility] Address [email or web address] [address] Phone Care Team Providers Care Hse Coordinator Name Role Phone Pcp, Not Required Primary [...] 08/10/2009 ZOSTER VACCINES (1 of 2) 08/10/2009 OSTEOPOROSIS SCREENING INITI AL (ONE-TIME) 08/10/2024 INFLUENZA VACCINE (#1) 2024 , 02/01/2016 COVID-19 VACCINE (3 - 2024-2 6 season) 2025 07/05/2020, 06/07/2020 RSV VACCINE (1 - 1-dose 75+ series) [...] topic Medical Devices Not on file Insurance [facility] [place] [address] [place] [address] POS EPO [facility] POS EPO O POS E[place] [address] [place], [place] [address] POS EPO [facility] POS EPO [employer] HMO POS EPO Care Teams Hse Coordinator Relationship Specialty Start Date End Date Pcp, Not Required [address] [place] [id number] PCP - General 06/07/20 Additional Source Comments The information contained in this document represents components of the legal health record. It is not the complete legal health record.[facility]
== END 2025-01-21 09:14 | disposition home or self-care (01) ==
PROVIDERS: PCP Pediatrics; Visit Provider Orthopaedic Surgery
DX: M75.102 Unspecified rotator cuff tear or rupture of left shoulder, not specified as traumatic (principal)
CPT/HCPCS: 99213

== ENCOUNTER 2025-04-22 08:29 | Outpatient (AMB) | payer OTHER, SELFPAY ==
[2025-04-22 08:30] VITALS: BMI 38.8
--- NOTE | 2025-04-22 08:30 | A.OFFVIS_ITS ---
Vital Signs 04/22/25 08:30 Height 5 ft 8 in Weight 255 lb BMI 38.8 Intake Visit Reasons: OV- Lt RTC Repair 04/22/24 NE Intake Note: Rita is a 64 year old right hand dominant female who presents today for a follow up of her Left Shoulder about one year s/p Left Large RTC Repair 04/22/24. At her last visit it was noted that she continued to struggle with active motion, weak/ limited abduction - considering a RTC Dysfunction. Allergies No Known Allergies Allergy (Verified 04/22/25 08:30) HPI HPI OV- Lt RTC Repair 04/22/24 NE: Details: Rita is a 64 year old right hand dominant female who presents today for a follow up of her Left Shoulder about one year s/p Left Large RTC Repair 04/22/24. At her last visit it was noted that she continued to struggle with active motion, weak/ limited abduction - considering a RTC Dysfunction. She states her shoulder overall feels better but her function is. She has learned to live with it. She understands tear was retracted large tear and that this is potential surgery. [facility] Medical History Left shoulder pain Osteoarthritis HTN (hypertension) PONV (postoperative nausea and vomiting) Surgical History History of Hx of tubal ligation (~1981) History of loop electrosurgical excision procedure (LEEP) (08/01/23) Hx of colonoscopy S/P right knee arthroscopy History of cholecystectomy (~1982) Hx of laparoscopic gastric banding (2006) History of left knee replacement (01/15/23) History of repair of right rotator cuff (~2021) Social History Are you a primary career development specialist to a significant other at home: Yes (Brother-other family members assist) Do you presently have visiting nurse or other home services: No Patient Tobacco Use Status: Never used Tobacco Current occupational status: employed 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 75 degrees of forward flexion. Vital Signs: BMI result Body Mass Index 38.8 Assessment & Plan Assessment & Plan (1) Rotator cuff tear, left: Code(s): M75.102 - Unspecified rotator cuff tear or rupture of left shoulder, not specified as traumatic Category: Medical Plan: Rita is 1 year status post massive rotator cuff repair. This is a retracted tear and does not appear to have healed in a way to allow for normal shoulder function. This is not surprising and I discussed this with her. She understands. We did discuss shoulder arthroplasty as a next step should she want but at this time she feels that her pain is minimal and she can function and so no further intervention needed or desired at this time. She will follow up PRN. Coding Level of Care Code Est Pt Level 3 (81075) Diagnoses Rotator cuff tear, left M75.102
== END 2025-04-22 08:56 | disposition home or self-care (01) ==
LOC: HO.HOS 08:29
PROVIDERS: PCP Pediatrics; Visit Provider Orthopaedic Surgery
DX: M75.102 Unspecified rotator cuff tear or rupture of left shoulder, not specified as traumatic (principal); M25.612 Stiffness of left shoulder, not elsewhere classified; Z47.89 Encounter for other orthopedic aftercare
CPT/HCPCS: 99213